=== PATIENT | male | born 1995 | race Caucasian/White ===

== ENCOUNTER 2017-02-04 19:34 | Emergency (ER) | payer OTHER ==
[~2017-02-04] VITALS: Ht 175.3 cm; Wt 95.2 kg
[2017-02-04] MEDS ORDERED: PROZAC20 MG PO (19:54)
[2017-02-04] MEDS ORDERED: VISTARIL50 MG PO (19:55)
[2017-02-04] MEDS ORDERED: GEODON60 MG PO (19:56)
[2017-02-04] MEDS ORDERED: VENTOLIN HFA18 GM INH (19:56)
[2017-02-04] MEDS ORDERED: GEODON40 MG PO (19:57)
[2017-06-13] MEDS ORDERED: AMITRIPTYLINE H50 MG PO (00:58)
[2017-06-13] MEDS ORDERED: UNISOM50 MG PO (01:01)
[2017-06-14] MEDS ORDERED: GEODON40 MG PO (10:43)
== END 2017-02-04 20:53 | disposition home or self-care (01) ==
LOC: ED 19:34
DX: S06.2X9A Diffuse traumatic brain injury with loss of consciousness of unspecified duration, initial encounter (principal); S05.12XA Contusion of eyeball and orbital tissues, left eye, initial encounter; S00.81XA Abrasion of other part of head, initial encounter; F20.9 Schizophrenia, unspecified; J45.909 Unspecified asthma, uncomplicated; Z91.010 Allergy to peanuts; Z88.8 Allergy status to other drugs, medicaments and biological substances; Z79.899 Other long term (current) drug therapy; W22.01XA Walked into wall, initial encounter
CPT/HCPCS: 70450; 99284

== ENCOUNTER 2017-02-10 16:24 | Day surgery (SDC) | payer OTHER ==
[~2017-02-10] VITALS: Ht 175.3 cm; Wt 95.2 kg
[~2017-02-10 16:24] MED LIST: GEODON40 MG PO; GEODON60 MG PO; PROZAC20 MG PO; VENTOLIN HFA18 GM INH; VISTARIL50 MG PO
--- NOTE | 2017-02-10 20:10 | NUR ---
02/10/172009 Zoie German PT O2 SAT 100%, O2 REMOVED.
--- NOTE | 2017-02-10 20:40 | NUR ---
RECEIVED REPORT FROM [facility] PACU. PT ARRIVED TO FLOOR AT THIS TIME.
--- NOTE | 2017-02-10 21:55 | NUR ---
PT GIVEN JOSE PUDDING AND A SOFT DRINK PER CHOICE. HANDS AND FACE WITH BLUE INK.
--- NOTE | 2017-02-10 22:00 | NUR ---
ATE 100 PERCENT PUDDING. [facility] NURSE LANI CALLED, GAVE REPORT VIA THE INSTRUCTIONS PROVIDED. PT IV DC'D INTACT.
--- NOTE | 2017-02-10 22:10 | NUR ---
PT ESCORTED OUTSIDE IN WHEELCHAIR, ACCOMPAINED BY THIS RN WELL 2 [facility] GUARDS. PT WAS READ THE INSTRUCTIONS PROVIDED, [facility] GUARD GIVEN ENVELOPE WITH INSTRUCTIONS ENCLOSED. PT DID NOT HAVE COMPLAINTS OF NAUSEA, BUT DID SAY THE FOOD DIDN'T HELP HIS STOMACH.
--- NOTE | 2017-02-12 12:48 | OR ---
[facility] [address], [place] [address] Signed DATE OF PROCEDURE: 02/10/17 PREOPERATIVE DIAGNOSIS: Gastric foreign bodies (comb and pin). POSTOPERATIVE DIAGNOSIS: Gastric foreign bodies (comb and pin). PROCEDURES: Esophagogastroduodenoscopy with foreign body removal. ESTIMATED BLOOD LOSS: None. INDICATIONS Donavon is a 21 -year-old schizophrenic gentleman with self-abusive behavior from our [facility]. He has been in segregation. He decided to take the teeth off a plastic comb and swallow them. They are also allowed the inner portion of a ballpoint pen in order to write. He bit the end of that often, bit another piece of it often, swallowed that as well. He was therefore brought to our local emergency room for evaluation. Of course, x-ray showed a metallic foreign body in the fundus of the stomach. I was asked to see him in the emergency room as a general surgeon relief salesperson. I met with Donavon and I explained to him it probably would be worthwhile to go ahead and take him down to endoscopy suite to see if we could remove most of those foreign bodies. However there is a high likelihood he will pass those foreign bodies as well. I explained to him upper endoscopy along with the risks and benefits. He also understands the need for an anesthesia provider. He had expressed understanding and wished to proceed. PROCEDURE NOTE Donavon was taken in to our endoscopy suite and placed in a supine position under general endotracheal tube anesthesia. The adult gastroscope was introduced and passed out into the stomach under direct visualization of camera. He still h ad some food in the stomach including peas and fluid and so forth. Much of that I was able to suction out, but not all of it. I could see small pieces of comb in the antrum with the food and it passed out in the duodenum and off it went. We retroflexed the scope and he had similar findings in the fundus. We used our biopsy forceps to remove multiple pieces of the comb and 2 pieces of the pin. There were still 2 tiny pieces in there and they never could get a hold of and remove. We then withdrew the scope a n d we saw no evidence of any obvious trauma to his esophagus or posterior oropharynx. After this, the gas was suctioned out and the gastroscope removed. Donavon was awakened from his anesthesia, extubated in the OR, taken to recovery room in stable condition. Electronically Signed By: RJ OWENS MD 02/12/17 1248 PATIENT NAME: DONAVON CALLE OPERATIVE REPORT DATE OF : [birth year] PHYSICIAN: RJ OWENS MD REPORT #: [id number] REPORT IS CONFIDENTIAL AND NOT TO BE RELEASED WITHOUT AUTHORIZATION [facility] [address] [place] [id number] Signed Rj Owens MD AB/Modl /[id number] cc: Bola Henley MD Electronically Signed By: RJ OWENS MD 02/12/17 1248 PATIENT NAME: DONAVON CALLE OPERATIVE REPORT DATE OF : 93 PHYSICIAN: RJ OWENS MD REPORT #: [id number] REPORT IS CONFIDENTIAL AND NOT TO BE RELEASED WITHOUT AUTHORIZATION
--- NOTE | 2017-02-12 12:48 | CONS ---
[facility] [address], [place] [address] Signed DATE OF CONSULTATION: 02/10/17 REFERRING PHYSICIAN: Dr. Jere Camacho. CHIEF COMPLAINT: Gastric foreign body. HISTORY OF PRESENT ILLNESS Donavon is a 21-year-old gentleman from our [facility]. He is known to have schizophrenia. He decided to chew off the end of a pin today and apparently broke off pieces of its plastic comb and was swallowing that as well. So he was, therefore, brought to the emergency room for evaluation. On the x-rays, it looks like he has part of a pin in the fundus of the stomach. Of course, the comb would be plastic and that would be difficult to see on a regular x-ray. I was asked to see him as a general surgeon on-call. PAST MEDICAL HISTORY: Schizophrenia, asthma, and self-abusive behavior. PAST SURGICAL HISTORY: Open appendectomy and circumcision. SOCIAL HISTORY He does not smoke or drink. He is from our [facility] [place]. Dr. Bola Henley is his primary care provider. His adoptive parents live in [place], near [place], [place]. FAMILY HISTORY Mom apparently h ad some type of bone marrow cancer, asthma, and diabetes. Dad had heart failure and renal failure. REVIEW OF SYSTEMS: I reviewed 10 systems of Donavon and nothing new to add. ALLERGIES: Peanuts, Metformin, Trazodone, and Nefazodone. MEDICATIONS: Fluoxetine, Vistaril, Geodon, and Albuterol. PHYSICAL EXAMINATION VITAL SIGNS: Blood pressure 146/85, heart rate 102, respiratory rate 16, temperature is 98.7, O2 is 97% on room air. He is 5 feet 9 inches and 93 kg. GENERAL: Donavon is a 21-year-old gentleman who is lying supine in his emergency room bed, two of the officers are with him. Of course, he is in handcuffs and ankle cuffs as well. He is alert and awake and interactive. He has blue ink around his mouth and his lips. LUNGS: Clear to auscultation bilaterally. HEART: Regular rate and rhythm. ABDOMEN: Soft, flat, and nontender. Electronically Signed By: RJ GOTTI MD 02/12/17 1248 PATIENT NAME: DONAVON CALLE CONSULTATION DATE OF : [birth year] PHYSICIAN: RJ GOTTI MD REPORT #: [id number] REPORT IS CONFIDENTIAL AND NOT TO BE RELEASED WITHOUT AUTHORIZATION [facility] [address], [place] [address] Signed LABORATORY DATA His white blood cell count is 10.5, hemoglobin 16, neutrophils 71. Electrolytes unremarkable. His calcium is slightly up at 10.9. RADIOGRAPHIC STUDIES Abdominal and chest x-rays are reviewed along with the report. There is a metallic foreign body in what appears to be the fundus of the stomach in the left upper quadrant of the abdomen. ASSESSMENT AND PLAN Donavon is a 21-year-old gentleman who presents with gastric foreign bodies. I explained to Donavon it is probably best we go ahead and take him down under anesthesia for upper endoscopy and we can remove as many foreign bodies as possible. Often smaller foreign bodies can pass, but we will do our best to get all the foreign bodies out. Of course, there is risk to the procedure including but not limited to gas, bloating, crampy abdominal pain, bleeding, perforation requiring surgery, and missed diagnosis. He has expressed understanding and would like to proceed. MD PEE Kirby/Modl /[id number] cc: Bola Henley MD Electronically Signed By: RJ GOTTI MD 02/12/17 1248 PATIENT NAME: DONAVON CALLE CONSULTATION DATE OF : 93 PHYSICIAN: RJ GOTTI MD REPORT #: [id number] REPORT IS CONFIDENTIAL AND NOT TO BE RELEASED WITHOUT AUTHORIZATION
[2017-06-13] MEDS ORDERED: AMITRIPTYLINE H50 MG PO (00:58)
[2017-06-13] MEDS ORDERED: UNISOM50 MG PO (01:01)
[2017-06-14] MEDS ORDERED: GEODON40 MG PO (10:43)
== END 2017-02-10 22:10 | disposition home or self-care (01) ==
LOC: ED 16:24 → MS 16:26 → DS 16:26
PROVIDERS: Colon & Rectal Surgery
PROC: 0DC68ZZ Extirpation of Matter from Stomach, Via Natural or Artificial Opening Endoscopic (ICD-10-PCS; principal; 2017-02-10 19:09)
DX: T18.2XXA Foreign body in stomach, initial encounter (principal); F20.9 Schizophrenia, unspecified; J45.909 Unspecified asthma, uncomplicated; Z90.49 Acquired absence of other specified parts of digestive tract
CPT/HCPCS: 00740; 71010; 74000; 80048; 85025; 94640; 99285; J0330; J1100; J2704

== ENCOUNTER 2017-02-12 15:24 | Emergency (ER) | payer OTHER ==
[~2017-02-12] VITALS: Ht 175.3 cm; Wt 95.2 kg
[2017-02-12] MEDS ORDERED: HALDOL5 MG/1 ML PO (15:37)
[2017-06-13] MEDS ORDERED: AMITRIPTYLINE H50 MG PO (00:58)
[2017-06-13] MEDS ORDERED: UNISOM50 MG PO (01:01)
[2017-06-14] MEDS ORDERED: GEODON40 MG PO (10:43)
== END 2017-02-12 19:32 | disposition home or self-care (01) ==
LOC: ED 15:24
DX: T50.992A Poisoning by other drugs, medicaments and biological substances, intentional self-harm, initial encounter (principal); R11.2 Nausea with vomiting, unspecified; F20.9 Schizophrenia, unspecified; J45.909 Unspecified asthma, uncomplicated; Z91.010 Allergy to peanuts; Z88.8 Allergy status to other drugs, medicaments and biological substances; Z79.899 Other long term (current) drug therapy
CPT/HCPCS: 74000; 80053; 80176; 81001; 85025; 96374; 99283; G0480; J2060

== ENCOUNTER 2017-05-09 18:37 | Emergency (ER) | payer OTHER ==
[~2017-05-09] VITALS: Ht 175.3 cm; Wt 95.2 kg
[~2017-05-09 18:37] MED LIST changes: +HALDOL5 MG/1 ML PO
[2017-05-09] MEDS ORDERED: AMITRIPTYLINE H50 MG PO (18:52)
[2017-05-09] MEDS ORDERED: AMOXICILLIN500 MG PO (21:21)
[2017-06-13] MEDS ORDERED: AMITRIPTYLINE H50 MG PO (00:58)
[2017-06-13] MEDS ORDERED: UNISOM50 MG PO (01:01)
[2017-06-14] MEDS ORDERED: GEODON40 MG PO (10:43)
== END 2017-05-09 21:27 | disposition home or self-care (01) ==
LOC: ED 18:37
DX: T17.228A Food in pharynx causing other injury, initial encounter (principal); J45.909 Unspecified asthma, uncomplicated; F20.9 Schizophrenia, unspecified; Z90.49 Acquired absence of other specified parts of digestive tract; Z91.010 Allergy to peanuts; Z88.8 Allergy status to other drugs, medicaments and biological substances; Z79.899 Other long term (current) drug therapy
CPT/HCPCS: 70360; 71010; 99283

== ENCOUNTER 2017-05-23 09:34 | Emergency (ER) | payer OTHER ==
[~2017-05-23] VITALS: Ht 175.3 cm; Wt 97.5 kg
[~2017-05-23 09:34] MED LIST changes: +AMITRIPTYLINE H50 MG PO; +AMOXICILLIN500 MG PO
[2017-05-23] MEDS ORDERED: CLEOCIN HCL300 MG PO (09:45)
[2017-05-23] MEDS ORDERED: ULTRAM50 MG PO (09:46)
[2017-06-13] MEDS ORDERED: AMITRIPTYLINE H50 MG PO (00:58)
[2017-06-13] MEDS ORDERED: UNISOM50 MG PO (01:01)
[2017-06-14] MEDS ORDERED: GEODON40 MG PO (10:43)
== END 2017-05-23 12:43 | disposition home or self-care (01) ==
LOC: ED 09:34
PROC: 0HCEXZZ Extirpation of Matter from Left Lower Arm Skin, External Approach (ICD-10-PCS; principal; 2017-05-23)
DX: S60.852A Superficial foreign body of left wrist, initial encounter (principal); F20.9 Schizophrenia, unspecified; J45.909 Unspecified asthma, uncomplicated; Z90.49 Acquired absence of other specified parts of digestive tract; Z91.010 Allergy to peanuts; Z88.8 Allergy status to other drugs, medicaments and biological substances; Z79.899 Other long term (current) drug therapy; Z79.2 Long term (current) use of antibiotics; W45.8XXA Other foreign body or object entering through skin, initial encounter
CPT/HCPCS: 10120; 73110; 76000; 99283

== ENCOUNTER 2017-06-13 17:30 | Inpatient (IN) | payer OTHER ==
[~2017-06-13] VITALS: Ht 175.3 cm; Wt 104.1 kg
[~2017-06-13 17:30] MED LIST changes: +CLEOCIN HCL300 MG PO; +ULTRAM50 MG PO; +UNISOM50 MG PO
[2017-06-13] MEDS ORDERED: HYDROXYZINE HCL50 MG PO (18:12)
--- NOTE | 2017-06-17 05:42 | CONS ---
[facility] [address] [place], [place] [address] Signed DATE OF CONSULTATION: 06/13/2017 CHIEF COMPLAINT: Swallowed foreign bodies. HISTORY OF PRESENT ILLNESS: Donavon is a 21-year-old gentleman with schizophrenia from our local [facility]. The last two days, it sounds like he swallowed two rocks, part of a pin, part of a toothbrush, and then some Coban and gauze as well. He came to the emergency room earlier and was sent home. He is back because he was having subxiphoid abdominal pain. He did receive a CT scan of the abdomen and pelvis with oral contrast; sure enough he has two rocks down in the small bowel along with the pin, with some pneumatosis around the pin, and then probably part of the toothbrush is proximal to that and then it looks like the gauze was stuck in the stomach and part of the pylorus. I was asked to see him here in the emergency room. PAST MEDICAL HISTORY: Schizophrenia, asthma, self harm behavior. PAST SURGICAL HISTORY: Appendectomy; EGD, with foreign body removal. SOCIAL HISTORY: He does not smoke or drink. [facility] is [facility] Dr. Jc Henley is his primary care provider. FAMILY HISTORY: Not reviewed. REVIEW OF SYSTEMS: A 10-systems reviewed and really nothing new since I saw Donavon last. ALLERGIES: Peanut, metformin, trazodone, and nefazodone. MEDICATIONS,: Benadryl, hydroxyzine, Geodon, amitriptyline, fluoxetine, and albuterol. PHYSICAL EXAMINATION: VITAL SIGNS: Blood pressure is 120/64, heart rate is 114, respiratory rate 18, temperature is 99.1. He is 95% on room air. He is 5 feet 9 inches, 97 kg. GENERAL: Donavon is a 21-year-old gentleman who is sitting semi-recumbent supine in his ER bed. He just had his NG tube placed and to removal of the oral contrast from his Electronically Signed By: RJ GOTTI MD 06/17/17 0542 PATIENT NAME: DONAVON CALLE CONSULTATION DATE OF : 93 PHYSICIAN: RJ GOTTI MD REPORT #: [id number] REPORT IS CONFIDENTIAL AND NOT TO BE RELEASED WITHOUT AUTHORIZATION [facility] [address] [place], [place] [address] Signed stomach. He is alert, awake, and interactive. LUNGS: Clear to auscultation. HEART: Tachycardic. ABDOMEN: Mildly protuberant, but he does not seem to have tenderness to palpation. Certainly no peritonitis. LABORATORY DATA: His white blood cell count 17.9, neutrophils 83. His potassium is 2.4, BUN 17, creatinine 0.9. The UA, specific gravity is elevated at 1.033. His albumin is 4.6. RADIOGRAPHIC STUDIES: CT scan of the abdomen and pelvis is reviewed along with the report from the radiologist and sure enough we can see some gauze in the stomach, probably some in the pylorus. There were two rocks out in the small bowel. I can see a metallic object, probably the pin, with some pneumatosis around it and proximal to that it looks like there was a clear plastic foreign body in his small bowel. ASSESSMENT AND PLAN: Donavon is a 21-year-old gentleman who presents as above. At this point, I think we are going to take him down the endoscopy suite and see if we can get the gauze and Coban out of his stomach for tonight. He will be admitted and we are going to correct his potassium and we will repeat his labs in the morning. There was some concern obviously with the pneumatosis around that pin that he may need surgery to have that removed. I have explained this to Donavon. He has expressed understanding and agrees with the above plan. He has been through upper endoscopy before and he understands that quite well. Rj Gotti MD ALB/MODL /[id number] cc: MD Bola Harris MD Electronically Signed By: RJ GOTTI MD 06/17/17 0542 PATIENT NAME: DONAVON CALLE CONSULTATION DATE OF : 93 PHYSICIAN: RJ GOTTI MD REPORT #: [id number] REPORT IS CONFIDENTIAL AND NOT TO BE RELEASED WITHOUT AUTHORIZATION
--- NOTE | 2017-06-18 06:57 | OR ---
[facility] [address] [place], [place] [address] Signed DATE OF OPERATION: 06/17/17 SURGEON: Rj Gotti MD PREOPERATIVE DIAGNOSIS: Gastric and small-bowel foreign bodies. POSTOPERATIVE DIAGNOSIS: Gastric and small-bowel foreign bodies. PROCEDURE: Esophagogastroduodenoscopy with foreign body removal x6. FINDINGS: Coban x2, pen x2, foam gauze x2. ESTIMATED BLOOD LOSS: None. INDICATIONS: Donavon is a 21-year-old gentleman with schizophrenia from our [facility]. We have had him before, where he had swallowed various foreign bodies. Apparently, he has been in segregation and decided he wanted to swallow a couple of rocks, 2 pieces of a pen, part of a toothbrush, and some Coban and gauze. He came to the emergency room once, I sent him back home, and he was having subxiphoid abdominal pain, so they brought him back to the emergency room. He was a little tachycardic with a T-max of 99.4. His white count was up at 17.9. Potassium was down to 2.[address] scan showed what looks like the gauze in the stomach near the pylorus, two rocks in the small bowel and two pieces of pen, and/or one piece of pen with part of a toothbrush and it looks like there may be some pneumatosis around the pen out in the mid small bowel. However, he points to pain right below underneath the xiphoid process. I was asked to come see him here in the emergency room. I met with Donavon and explained to him that we needed to take him down to our endoscopy suite and remove as many foreign bodies as we could with our endoscope. Given the fact that and given his above findings, we are going to keep him overnight for hydration, correct his hypokalemia, and repeat his blood work in the morning and see whether or not the pen has perforated his bowel. At this point, we did not see any free air. There was just some pneumatosis underneath the mucosa. He understands upper endoscopy having been through it previously. He understands there is risk including but not limited to gas bloating, crampy abdominal pain, bleeding, perforation requiring surgery, and missed diagnosis. He had expressed understanding wished to proceed. Electronically Signed By: RJ GOTTI MD 06/17/17 0542 Electronically Signed By: RJ GOTTI MD 06/18/17 1432 PATIENT NAME: DONAVON CALLE OPERATIVE REPORT DATE OF : 93 PHYSICIAN: RJ GOTTI MD REPORT #: [id number] REPORT IS CONFIDENTIAL AND NOT TO BE RELEASED WITHOUT AUTHORIZATION [facility] [address] [place], [place] [address] Signed PROCEDURE NOTE: Donavon was taken into our endoscopy suite and placed in the supine semi-recumbent position. We had placed an NG tube in the emergency room and suctioned out his oral contrast. He was placed under general endotracheal tube anesthesia. The adult gastroscope was then introduced and advanced down the esophagus without difficulty. We found the two pieces of Coban and the two pieces of foam gauze up near the GE junction. Those four pieces were removed with the grasper. The scope had been reintroduced and we found that he had a piece of pen in the antrum of the stomach, so we grabbed that with our snare and removed it from the abdomen. After this, we went out into the duodenum and found a second piece of the pen containing the ink and we removed that with our snare as well. The scope was reintroduced all the way out into the duodenum as far as the camera would go and we were somewhere out in the third portion of the duodenum. No additional foreign bodies were noted. There was some clear bile in the duodenum. The scope was then slowly withdrawn. Upon retroflexion of scope, his cardia looked fine. We did not see any obvious hiatal hernia. The scope was withdrawn up through the area of the GE junction, which was compliant without stricture. He had a little irritation in the esophagus mainly from the NG tube. After this, the gas was suctioned out and the gastroscope removed. Donavon tolerated his procedure quite well. RECOMMENDATIONS: Donavon is going to be kept overnight here at the hospital. We are going to hydrate him, repeat his labs in the morning, since we have some concern about pneumatosis around that piece of pen out in the mid small bowel. However, he does not seem to have any pain out in his mid abdomen. MD DONNA Harris/STEFANIEL /[id number] cc: Bola Henley MD Electronically Signed By: RJ GOTTI MD 06/17/17 0542 Electronically Signed By: RJ GOTTI MD 06/18/17 1432 PATIENT NAME: DONAVON CALLE OPERATIVE REPORT DATE OF : [birth year] PHYSICIAN: RJ GOTTI MD REPORT #: [id number] REPORT IS CONFIDENTIAL AND NOT TO BE RELEASED WITHOUT AUTHORIZATION
== END 2017-06-18 15:55 | disposition home or self-care (01) | DRG 394 ==
LOC: ED 17:30 → MS 17:32
PROVIDERS: ADMIT Colon & Rectal Surgery
PROC: 0DC68ZZ Extirpation of Matter from Stomach, Via Natural or Artificial Opening Endoscopic (ICD-10-PCS; principal; 2017-06-17)
PROC: 0DC88ZZ Extirpation of Matter from Small Intestine, Via Natural or Artificial Opening Endoscopic (ICD-10-PCS; principal; 2017-06-17)
DX: T18.2XXA Foreign body in stomach, initial encounter (principal); F23 Brief psychotic disorder; X58.XXXA Exposure to other specified factors, initial encounter; T18.3XXA Foreign body in small intestine, initial encounter
CPT/HCPCS: 36415; 51701; 51702; 51798; 71045; 74020; 74177; 80048; 80053; 81001; 83735; 84075; 84100; 85025; 96361; 96374; 96375; 96376; 99156; 99157; 99284; G0378; J1170; J2060; J2405; J3480; J7030; J7120; Q0177; Q9967

== ENCOUNTER 2017-06-18 20:10 | Inpatient (IN) | payer OTHER ==
[~2017-06-18] VITALS: Ht 175.3 cm; Wt 99.4 kg
[~2017-06-18 20:10] MED LIST changes: +HYDROXYZINE HCL50 MG PO
--- NOTE | 2017-06-18 22:38 | NUR ---
RECEIVED REPORT FROM RADHA CARMONA FROM ED.
--- NOTE | 2017-06-18 22:58 | NUR ---
HELPED OTHER RN'S GET PT MOVED INTO BED FROM [facility]. GOT VITALS AND CHARTED IT. LEFT PT WITH RN AND TWO GUARDS IN THE ROOM. PT NEEDS NOTHING ELSE AT THIS TIME. BEDSIDE TABLE AND CALL LIGHT WITHIN REACH.
--- NOTE | 2017-06-18 23:06 | NUR ---
PT ARRIVED BY STRETCHER FROM [facility]. PT WAS DISCHARGED TODAY BACK TO [facility]. PT SWALLOWED OBJECTS, DR. GOTTI REMOVED MOST BUT REMAINING "PART OF A PEN". PT IS SHACKLED, HAS 2 GUARDS PRESENT AT BEDSIDE. PT IS NOT ALLOWED TO HAVE MOVABLE OBJECTS WITHIN HIS REACH DUE TO "PICA" LIKE BEHAVIOR, SELF HARM. CALL ALARCON WITHIN HIS REACH. IV BOLUS CONTINING AT THIS TIME. DENIES NAUSEA, WANTING TO DRINK BUT IS AWARE HE IS NPO.
--- NOTE | 2017-06-18 23:49 | NUR ---
PATIENT RESTING COMFORTABLY IN BED, BREATHING IS EVEN AND UNLABORED. REPORTS 5/10 PAIN IN ABD AND STATES "I AM ACTUALLY PRETTY COMFORTABLE RIGHT NOW." DENIES NAUSEA AT THIS TIME. NO NEEDS. ASSESSMENT DONE. CALL LIGHT WITHIN REACH, RESTRAINTS IN PLACE, GUARDS AT BEDSIDE.
--- NOTE | 2017-06-19 00:30 | NUR ---
PATIENT REPORTS 7/10 PAIN IN ABD, PRN DILAUDID GIVEN PER EMAR. DENIES FURTHER NEEDS AT THIS TIME. CALL LIGHT WITHIN REACH, GUARDS AT BEDSIDE.
--- NOTE | 2017-06-19 02:46 | NUR ---
PATIENT REPORTS 01/09 IN ABD, PRN DILAUDID GIVEN BY RADHA ACKERMAN.
--- NOTE | 2017-06-19 02:46 | NUR ---
VITALS DONE AND CHARTED. PT IS NPO AND HAS NOT URINATED SINCE HE HAS BEEN ON MEDS SURG. RN LIVIA IS AWARE OF THIS. BEDSIDE TABLE AND CALL LIGHT WITHIN REACH. TWO GUARDS ARE IN THE ROOM WITH HIM. PT NEEDS NOTHING ELSE AT THIS TIME.
--- NOTE | 2017-06-19 03:36 | NUR ---
PATIENT RESTING COMFORTABLY IN BED, BREATHING IS EVEN AND UNLABORED. REPORTS 5/10 PAIN IN ABD. DENIES NEEDS AT THIS TIME. CALL LIGHT WITHIN REACH, GUARDS AT BEDSIDE.
--- NOTE | 2017-06-19 04:30 | NUR ---
PATIENT'S NIGHT WAS UNEVENTFUL. HE HAS BEEN RESTING IN BED SINCE ADMISSION. PAIN HAS BEEN WELL CONTROLLED WITH PRN IV DILAUDID, NO COMPLAINTS OF NAUSEA SINCE ARRIVAL TO MED-SURG. PATIENT HAS IV FLUIDS, CURRENTLY NPO. WILL HAVE ABD X-RAY THIS MORNING. NO ACUTE CHANGES FROM ARRIVAL.
--- NOTE | 2017-06-19 04:38 | NUR ---
PATIENT RESTING COMFORTABLY IN BED, BREATHING IS EVEN AND UNLABORED. FLACC SCORE OF 0. CALL LIGHT WITHIN REACH, GUARDS AT BEDSIDE.
--- NOTE | 2017-06-19 05:27 | NUR ---
PATIENT RESTING IN BED COMFORTABLY, BREATHING IS EVEN AND UNLABORED. REPORTS 7/10 PAIN IN ABD AND NAUSEA. PRN PAIN MEDICATION AND ANTIEMETIC GIVEN. DENIES FURTHER NEEDS. VITALS/I&O DONE. CALL LIGHT WITHIN REACH, GUARDS AT BEDSIDE.
--- NOTE | 2017-06-19 06:14 | NUR ---
PATIENT RESTING COMFORTABLY IN BED, BREATHING IS EVEN AND UNLABORED. DENIES NEEDS AT THIS TIME. REPORTS 5/10 ABD PAIN, NO NAUSEA AT THIS TIME. CALL LIGHT WITHIN REACH, GUARDS AT BEDSIDE.
--- NOTE | 2017-06-19 08:00 | NUR ---
PATIENT REQUESTING PAIN MEDICATION REPORTS 01/09 AFTER PUTTING HOSPITAL GOWN ON. PATIENT URINATING WELL, 300 ML OF CLEAR YELLOW URINE. PATIENT BACK RESTING IN BED. GUARDS AT BEDSIDE.
--- NOTE | 2017-06-19 10:27 | NUR ---
MED REC COMPLETE BASED ON PREVIOUS STARY 06/18/17.
--- NOTE | 2017-06-19 10:31 | NUR ---
PATIENT REQUESTING MEDS FOR NAUSEA. DISCUSSED WITH PATIENT ADMINISTER MORNING MEDICAITONS WITH SIPS OF WATER, AND COULD HAVE MORE PAIN MEDICATION. PATIENT THEN STATED " I AM NOT REALLY NAUTIOUS, I JUST WANT TO SLEEP". DISCUSSED WITH PLAN OF CARE FOR DAY. POSSIBLE SURGERY, HOWEVER PATIENT NEEDS TO BE UP AMBULATING IN HALLS, AND DISCUSSED VS Q4HRS. VS STABLE AND I&0S DONE.
--- NOTE | 2017-06-19 17:46 | NUR ---
PT SHOWERED WITH SUPERVISION OF GUARD. LINENS WERE CHANGED. PT BACK IN BED AND ASKED ABOUT HIS PAIN AND NAUSEA MEDS. WILL NOTIFY NURSE
--- NOTE | 2017-06-19 18:42 | NUR ---
PATIENT UP AMBULATED IN HALLS, TOLERATED WELL. PLAN TO DO SURGERY TOMORROW, CLEAR LIQUIDS TILL MIDNIGHT. PAIN WELL CONTROLLED WITH DILAUDID.
--- NOTE | 2017-06-19 20:00 | NUR ---
RECEIVED REPORT AT AROUND 1900. I FOUND PT IN BED WITH 2 GUARDS AT BESIDE. PT STATED THAT PAIN WAS 8/10 AND NAUSEA. PT IS TOLERATING CLEAR LIQUIDS WELL.
--- NOTE | 2017-06-19 20:25 | NUR ---
VITALS AND I&OS DONE AND CHARTED. BEDSIDE TABLE AND CALL LIGHT WITHIN REACH.
--- NOTE | 2017-06-19 22:00 | NUR ---
V/S ARE WDL, ALL LOBES ARE CLEAR. ALL ABD QUADRANTS HAVE NORMAL BOWEL SOUNDS PRESENT. PT DENIES PASSING GAS. PT IS TOLERATING CLEAR LIQUIDS WELL. NAUSEA AND PAIN ARE CONTROLLED WITH PRN MEDS. NO NEW ISSUES NOTED AT THIS TIME.
--- NOTE | 2017-06-19 22:16 | NUR ---
PT ADMITTED TO ROOM 119 VIA STRETCHER FROM ER. DX HYPOXEMIA, ON A2 2L/nc, CONT PULSE OX INPLACE SATS AT 93%. PT HAD A FEVER OF 103 ON ADMIT. PT WAS NEGATIVE FOR FLU . WILL BE PLACED ON DROPLET ISOLATION A NURSING MEASURE, NO COUGH OR C/O PAIN AT THIS TIME. PT ORIENTED TO ROOM AND HOSP PROCEDURES, ISOLATION STATUS EXPLAINED, STATED UNDERSTANDING
--- NOTE | 2017-06-20 00:30 | NUR ---
PAIN IS 7/10. PT REICEVED 1MG OF DILAUDED IV. PT IS GOING BACK TO SLEEP.
--- NOTE | 2017-06-20 01:41 | NUR ---
PER PT REQUEST I WENT IN AND EMPTIED HIS URINAL. PT REQUESTED MORE PAIN MEDICATION. I INFORMED HIS NURSE.
--- NOTE | 2017-06-20 02:30 | NUR ---
PT IS SLEEPING AT THIS TIME.
--- NOTE | 2017-06-20 04:28 | NUR ---
PT IS SLEEPING AT THIS TIME. PT RECEIVED 1MG OF IV DILAUDED AT 0400.
--- NOTE | 2017-06-20 05:42 | NUR ---
VITALS AND I&OS DONE AND CHARTED. EMPTIED ALL GARBAGES. PT NEEDS NOTHING ELSE AT THIS TIME. BEDSIDE TABLE AND CALL LIGHT WITHIN REACH.
--- NOTE | 2017-06-20 05:50 | NUR ---
V/S HAVE BEEN WDL SO FAR. PAIN HAS BEEN WELL CONTROLLED WITH PRN IV PAIN MED. ALL ABD QUADRANTS HAVE ACTIVE BOWEL TONES, PT HOWEVER DENIES PASSING ANY GAS. PT HAS SHOWN MANIPULATIVE BEHAVIOR IN REGARDS TO HIS PRN MEDS. ALL LUNGS ARE CLEAR AND NO NEW ISSUES HAVE BEEN NOTED SO FAR. PT HAS IS NPO. WRONG IV FLUIDS WERE RUNNING AT START OF SHIFT. ERROR WAS CORRECTED.
--- NOTE | 2017-06-20 08:40 | NUR ---
VERIFIED WITH DR. SHEN JONES TO ADMINISTER PROZAC WITH SIP OF WATER.
--- NOTE | 2017-06-20 10:29 | NUR ---
PATIENT TO SURGERY, VERBAL REPORT TO WINSOME GARCIA. PATIENT UP TO BATHROOM. LR WITH STRAIGHT TUBING CONNECTED. VS STABLE.
--- NOTE | 2017-06-20 11:42 | NUR ---
PATIENT GOT A SURGICAL WIPE DOWN AROUND 0900 THIS MORNING AND LINEN CHANGED.
--- NOTE | 2017-06-20 13:40 | NUR ---
06/20/17 1340 Zoie German 1329 RESP EVEN AND UNLABORED. PT MOVING HEAD BACK AND FORTH. CNRA GAVE MEDICAITON. 1335 PT ASLEEP.
--- NOTE | 2017-06-20 14:50 | NUR ---
PATIENT BACK TO ROOM 1425, REPORT RECIEVED. PATIENT APPEARS DROWSY, EYES CLOSED 02 SATURAITON 95% 1 L NC. PATIENT MUMBLING " THIRSTY". VERBALIZED TO PATIENT THAT HE MUST BE MORE AWAKE BEFORE WATER CAN BE PROVIDED. PATIENT THEN THRASHING HEAD BACK AND FORTH AND STICKING TONGUE OUT AND IN HIS MOUTH REPEATEDLY, " MY MOUTH SO DRY". PATIENT THEN SLEEPING. PROVIDED PATIENT WITH WARM BLANKET. PATIENT NOW ASKING " HOW MANY PEOPLE DID I HURT" REASSURED PATIENT NO ONE WAS HURT. VS STABLE.
--- NOTE | 2017-06-20 15:27 | NUR ---
PATIENT AMBULATED FULL LAP IN HALLS, APPEARS TO BE CALM AND COMFORTABLE. HEMATOMA TO RIGHT ELBOW APPEARS IMPROVED. AND LEFT HIP PAIN IMPROVED WELL. PATIENT SATURATION DE SAT TO 85% ON 2L, HOWEVER SATURATION IMPROVED WHEN SHE STOPPED WITH AND TOOK SOME DEEP BREATHS. RATED PAIN 5/10 AFTER AMBULATION, STATED " THAT WIPED ME OUT". PATIENT VERY PLEASED WITH SELF, AND NOW RESTING BACK IN BED.
--- NOTE | 2017-06-20 19:54 | NUR ---
PATIENT IN BED. EMPTIED URINAL (1000ML URINE). WHITEBOARD UPDATED, ROOM TIDIED.
--- NOTE | 2017-06-20 20:00 | NUR ---
RECEIVED REPORT AT 1900. FOUND PT IN BED NEEDING NAUSEA MEDS. 8MG OF ZOFRAN WAS GIVEN. PT STATED NO OTHER NEEDS AT THAT TIME. PT IS ALERT AND RESTING IN BED.
--- NOTE | 2017-06-20 22:00 | NUR ---
V/S WERE WDL, HOWEVER, HIS HR AND BP WERE A LITTLE HIGH FOR A PERSON HIS AGE. PAIN MAY PLAY A ROLE IN THIS FINDING THOUGH. ALL LOBES ARE CLEAR, ABD SOUNDS ARE ABSENT IN ALL QUADRANTS. PT HAS NOT BEEN PASSING SO FAR. PT IS VOIDING WELL. WILL CONTINUE TO MONITOR.
--- NOTE | 2017-06-20 22:25 | NUR ---
medicated with phenergan 12.5mg c/o n/v, no dry heaving ort emesis noted.
--- NOTE | 2017-06-21 | NUR ---
PT IS SLEEPING AT THIS TIME.
--- NOTE | 2017-06-21 02:02 | NUR ---
PT KEEPS ASKING FOR PAIN MEDICATION BUT I HAD TO HOLD IT BECAUSE HIS O2 SATS HAVE STARTED TO DROP TO ABOUT 90%. PT NOW IS ON BROOMCORN THRESHER AND 2L O2 NC. I TOLD HIM THAT I WOULD HAVE TO HOLD OF ON HIS PAIN MEDS FOR NOW. PT APPEARS TO BE RESTING AT THIS TIME.
--- NOTE | 2017-06-21 02:57 | NUR ---
RN IN ROOM
--- NOTE | 2017-06-21 03:25 | NUR ---
V/S ARE WDL, PT IS NOT PASSING GAS, ABD BOWEL TONES ARE ABSENT, ABD SEEMS A LITTLE MORE DISTENDED. PT STATED THAT HE IS BELCHING SOME. WILL CONTINUE TO MONITOR. DRESSING IS STILL C/D/I. ALL LOBES ARE CLEAR.
--- NOTE | 2017-06-21 04:56 | NUR ---
AT START OF SHIFT PT WAS VERY PAINFUL AND NAUSEADED. ORAL PRN PAIN MEDS WERE GIVEN AT FIRST BUT DID NOT RELIEF HIS PAIN AT ALL. ZOFRAN 8MG AND PHENERGAN 12.5MG WAS GIVEN IN ORDER TO RELIEF HIS NAUSEA. WITH BOTH ASSESSMENTS ABD SOUNDS IN ALL QAUDRANTS WERE ABSENT. PT HAS NOT PASSED ANY GAS SO FAR. PT STATED WITH SECOND ASSESSMENT THAT HE WAS BELCHING SOME. HIS ABDOMEN ALSO LOOKED MILDLY DISTENDED. DRESSING ON ABD IS C/D/I, ALL LOBES ARE CLEAR. PT IS NOT DOING MUCH DEEP BREATHING. URINE OUTPUT IS ADEQUATE. PT IS ON AIR DEFENCE OFFICER DUE TO NARCOTIC USE.
--- NOTE | 2017-06-21 05:49 | NUR ---
MD GOTTI CALLED IN REGARDS TO ABSENT BOWEL TONES AND INCREASING ABD DISTENTION. ORDERS WERE GIVEN TO MAKE PT NPO AT THIS TIME AND TO CONTINUE TO MONITOR.
--- NOTE | 2017-06-21 08:45 | NUR ---
PT AWAKE IN BED, REQUESTING PAIN MEDICATION FOR 7/10 ABD PAIN. MEDICATED WITH IV DILAUDID. PT DENIES FLATUS, ACTIVE BT NOTED, NO DISTENTION NOTED. PT DENIES NAUSEA. ALERT AND ORIENTED. 4 POINT CORRECTIONAL SHACKLES IN PLACE, SO CORRECTIONAL OFFICERS AT BEDSIDE. IV INFUSING WNL. PT SATTING 95% ON RA. MIDLINE DRESSING CDI. CALL LIGHT WITHIN REACH.
--- NOTE | 2017-06-21 09:43 | OR ---
[facility] [address], [place] [address] Signed DATE OF OPERATION: 06/20/2017 SURGEON: Rj Gotti MD PREOPERATIVE DIAGNOSIS: GI foreign bodies. POSTOPERATIVE DIAGNOSIS: Cecal foreign bodies x3 (rocks x2, ink pen tip). PROCEDURE: Laparotomy with GI foreign body removal x3 with physician directed fluoroscopy. ESTIMATED BLOOD LOSS: None. 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 He was with us earlier in the week after ingesting multiple foreign bodies to include the tip of an ink pen, 2 small rocks, the distal handle of a plastic toothbrush, as well as the inner ink cartridge from the pen, the Coban around his wrist, along with some foam that had been underneath the Coban. He has already been to the endoscopy suite and had the Coban and the foam gauze removed along with the ink pen cartridge. However, the 2 rocks, the tip of the ink pen and the toothbrush handle were too far down the small bowel to reach with a gastroscope. We had kept him in the hospital a few days on liquid diet without any bowel movement. We finally gave him some laxatives and he had multiple bowel movements. It looks like he cleared the toothbrush handle and the 2 rocks, but the tip of the ink pen was in the right lower quadrant. We thought maybe it was at the ileocecal valve. We let him go back to the skilled nursing, our plan was to let him have some continued diet for a few days, repeat x-rays and if it did not pass to bring him back to remove that foreign body. However, when he got back to the skilled nursing, he had unexplainable nausea and vomiting and so he was brought back to the emergency room. The ER doctor called me and so I just admitted him directly back into the hospital. Overnight, he slept and had no further nausea or vomiting. In the morning, I had met with him and explained that we could see at least the tip of the ink pen in the right lower quadrant and our plans were to take him to the operating room to have that removed. We were not able to do it that day, so today we brought him down the operating room for his laparotomy. I explained this to Donavon in detail over several days actually. He understands the midline laparotomy will be a periumbilical incision. We are going to use our fluoroscopy unit to help us find the tip of the ink pen and we Electronically Signed By: RJ GOTTI MD 06/21/17 0943 PATIENT NAME: DONAVON CALLE OPERATIVE REPORT DATE OF : 89 PHYSICIAN: RJ GOTTI MD REPORT #: [id number] REPORT IS CONFIDENTIAL AND NOT TO BE RELEASED WITHOUT AUTHORIZATION [facility] [address], [place] [address] Signed will have to make a small hole in the intestine to remove that and then closed that in 2 layers. He understands the expected intraoperative and postoperative course. He knows there is risk including but not limited to bleeding, infection, scarring, change in contour of the skin, damage to bowel, leakage from the bowel or inability to retrieve all foreign bodies, and possible need for additional surgeries should a foreign body perforate his intestine. He had expressed understanding and wished to proceed. PROCEDURE NOTE: Donavon was taken into the operating room and placed in the supine position under general endotracheal tube anesthesia. He was given preoperative antibiotics along with subcutaneous heparin. SCDs were utilized. A Dewitt catheter was inserted with return of clear yellow urine. The cuffs around his feet and hands were then removed. We used our fluoroscopy unit and we could see the tip of the pen in the right lower quadrant. After this, bilateral DESTINY blocks were placed by our nurse dye house hand. He was then prepped and draped in the usual sterile fashion. A standard periumbilical incision was made just slightly wider than my hand. He has had a previous appendectomy. The base of the cecum was adherent to the pelvic sidewall. We freed up the omentum and some small bowel and we followed the terminal ileum right down the ileocecal valve. I palpated carefully through that area and could not feel any foreign bodies. We brought the fluoro machine over and we could not see any foreign body in the small bowel and therefore we thought it must be in the cecum itself. It took some additional time to carefully free up the cecum from the sidewall and once we had that elevated, I was able to palpate the 2 rocks. We placed a bowel clamp across the small portion of the cecum, opened up the cecum about 1 cm and brought the 2 rocks out of the cecum and passed them off the field. We recheck with our fluoroscopy unit and sure enough the tip of the pen appeared to be in the cecum. It took me just a few minutes in to find it by palpation. We brought it up and out through a 1 cm hole in the cecum. After this, the hole in the cecum was closed in 2 layers with Vicryl and silk sutures. We then washed our hands and washed out the right lower quadrant. The cecum and small bowel returned to their positions. We brought the fluoro machine back over and rechecked around the right lower quadrant of the abdomen. No other foreign bodies were noted. After this, the midline fascia was closed with interrupted multiple [id number] #1 PDS sutures. The wound was irrigated and suctioned out until clear. Multiple 3-0 subcuticular Monocryl sutures were used to bring the skin and dermis back together. Dry gauze and tape were then applied. Donavon was then awakened from his anesthesia, extubated in the OR, taken to recovery room in stable condition. Rj Gotti MD Electronically Signed By: RJ GOTTI MD 06/21/17 0943 PATIENT NAME: DONAVON CALLE OPERATIVE REPORT DATE OF : [birth year] PHYSICIAN: RJ GOTTI MD REPORT #: [id number] REPORT IS CONFIDENTIAL AND NOT TO BE RELEASED WITHOUT AUTHORIZATION [address] [address] Signed [facility] /[id number] cc: MD Bola Harris MD Electronically Signed By: RJ GOTTI MD 06/21/17 0943 PATIENT NAME: DONAVON CALLE OPERATIVE REPORT DATE OF : [birth year] PHYSICIAN: RJ GOTTI MD REPORT #: [id number] REPORT IS CONFIDENTIAL AND NOT TO BE RELEASED WITHOUT AUTHORIZATION
--- NOTE | 2017-06-21 10:45 | NUR ---
ABD DRESSING DC'D PER DR GOTTI. MIDLINE INCISION WELL APPROXIMATED. NO BLEEDING, DRAINAGE, OR REDNESS NOTED.
--- NOTE | 2017-06-21 11:12 | NUR ---
PT AMB HALLWAY WITH 4POINT CORRECTIONAL RESTRAINTS IN PLACE, ABEL WELL. 1 LEASE ADMINISTRATION ANALYST SBA WITH PT.
--- NOTE | 2017-06-21 13:39 | NUR ---
PT SLEEPING SOUNDLY, EYES CLOSED, RESP EVEN AND UNLABORED. CORRECTIONAL OFFICERS AT BEDSIDE.
--- NOTE | 2017-06-21 14:43 | NUR ---
PT C/O 12/09 ABD PAIN, MEDICATED WITH 2 TABS NORCO. PT ASKING IF HE CAN HAVE SOLID FOOD. CALLED DR. GOTTI FOR ORDER TO ADVANCE TO FULL LIQUIDS. PT UP AMB WITH CORRECTIONAL OFFICERS AT THIS TIME. REPORTED POSITIVE FLATUS, DENIES NAUSEA.
--- NOTE | 2017-06-21 15:31 | NUR ---
PT SHOWERED INDEPENDENTLY WITH SUPERVISION OF CORRECTIONAL OFFICERS. BACK TO BED AT THIS TIME STATES "THAT SHOWER WAS GREAT AND I'M FEELING SO MUCH BETTER." RATING PAIN 2/10. DENIES NAUSEA. ORDERED PUDDING AND YOGURT TO EAT AT THIS TIME. IV INFUSING WNL. INCISION REMAINS WELL APPROXIMATED, NO DRAINAGE NOTED.
--- NOTE | 2017-06-21 17:09 | NUR ---
PT ABEL PUDDING AND YOGURT. SITTING IN BED WATCHING TV AT THIS TIME. ENGAGING IN SMALL TALK WITH THIS RN, SMILING AND LAUGHING. REQUESTING "NAUSEA AND PAIN MEDS AFTER DINNER." CORRECTIONAL OFFICERS AT BEDSIDE. CALL LIGHT WITHIN REACH.
--- NOTE | 2017-06-21 18:01 | NUR ---
PT ABEL FULL LIQUIDS, CREAM OF CHICKEN, PUDDING, AND YOGURT. REQUESTED PAIN AND NAUSEA MEDS ALTHOUGH DENIES NAUSEA. RATES PAIN /10. MEDICATED WITH ZOFRAN AND NORCO. CALL LIGHT WITHIN REACH.
--- NOTE | 2017-06-21 20:53 | NUR ---
PT ASSESSMENT COMPLETE. PT REPORTS NAUSEA AFTER USING THE BATHROOM. PRN PHENERGAN ADMINISTERED OVER 10 MIN ON PUMP, DILUTED IN 20 ML NS, . PT REQUESTING PRN SLEEP AID, ADMINISTERED. PT STATES THAT HE CANNOT WAIT TO EAT SOLID FOOD, ADVISED PT TO TAKE EATING SLOW DUE TO NAUSEA. PT STATES THAT NAUSEA IS NOT DUE TO EATING, DUE TO PRESSURE OF NEEDING TO VOID. BT'S HYPOACTIVE. PT REPORTS PASSING FLATUS. ABD TENDER, NONDISTENDED. INCISION WELL APPROXIMATED, NO DRAINAGE NOTED. PT DENIES OTHER NEEDS AT THIS TIME. CALL LIGHT WITHIN REACH.
--- NOTE | 2017-06-21 23:31 | NUR ---
PT RESTING IN BED WITH EYES CLOSED. RESPIRATIONS EVEN AND UNLABORED. SAO2 96%. NO S/SX OF DISTRESS NOTED. CALL LIGHT WITHIN REACH, GUARDS AT BEDSIDE.
--- NOTE | 2017-06-22 02:23 | NUR ---
PT UP TO USE THE BATHROOM WITH SBA. PT TOLERATED WELL. PT RATES PAIN 7/10 ONCE BACK TO BED, WELL REPORTS ONSET OF NAUSEA AFTER GETTING UP. PRN NORCO AND ZOFRAN ADMINISTERED. PT ASSESSMENT COMPLETE. PT EXPRESSES CONCERN OVER SMALL AMOUNT OF BLOOD DRIED TO GOWN, PT REASSURED THAT THIS IS NORMAL. SURGICAL SITE REMAINS WELL APPROXIMATED. NO ACTIVE DRAINAGE NOTED. BT'S HYPOACTIVE, ABD REMAINS TENDER. PT DENIES FURTHER NEEDS AT THIS TIME. CALL LIGHT WITHIN REACH. BRANDYN AT BEDSIDE.
--- NOTE | 2017-06-22 04:53 | NUR ---
PT RESTING IN BED WITH EYES CLOSED. RESPIRATIONS EVEN AND UNLABORED, SA02 92%. PT WAKES BRIEFLY WHILE FLOOR WORKER TRANSFER BAY IN DOORWAY. PT STATES THAT PAIN PILLS HAS HELPED WITH PAIN. DENIES OTHER NEEDS AT THIS TIME. CALL LIGHT WITHIN REACH, GUARDS PRESENT AT BEDSIDE.
--- NOTE | 2017-06-22 04:57 | NUR ---
PT HAVING INTERMITTENT PAIN/ NAUSEA THROUGHOUT THE SHIFT, ESPECIALLY AFTER PT UP AMBULATING TO BATHROOM. PRN NORCO, PHENERGAN, ZOFRAN ADMINISTERED. PT DENIES NAUSEA ASSOCIATED WITH EATING, STATES IT OCCURS MOSTLY WITH AMBULATION. MIDLINE INCISION RYAN, EDGES WELL APPROXIMATELY, SCANT RED DRAINAGE TO PT'S GOWN. BT'S HYPOACTIVE, PT PASSING FLATUS, ABD TENDER TO TOUCH, MILDLY DISTENDED. UO QS. D5LR @ 100. SBA, PT AMBULATING WITH GUARDS. CONTINUOUS PULSE OX IN PLACE.
--- NOTE | 2017-06-22 06:47 | NUR ---
PT CALLS, REPORTS PAIN 7/10 TO ABD AFTER GOING TO THE BATHROOM. PRN NORCO ADMINISTERED. PT REPORTS SLIGHT NAUSEA. PT ALSO INQUIRING ABOUT ADVANCING DIET. EDUCATION PROVIDED. PT STATES THAT NAUSEA IS RELATED TO GETTING UP AND GOING TO THE BATHROOM. PT STATES THAT WHEN HE LAYS DOWN NAUSEA SUBSIDES SOME. PT DENIES OTHER NEEDS AT THIS TIME. CALL LIGHT WITHIN REACH. BRANDYN AT BEDSIDE.
--- NOTE | 2017-06-22 07:04 | NUR ---
BEDSIDE REPORT FROM RADHA GARG. PT IN BED, BRANDYN AT BEDSIDE. VISUALIZED MIDLINE ABD INCISION, WNL. PT DENIED NEEDS AT THIS TIME.
--- NOTE | 2017-06-22 07:55 | NUR ---
took patient his breakfast, nurse was in room.
--- NOTE | 2017-06-22 07:57 | NUR ---
PT IN BED, EATING BREAKFAST. DENIES NAUSEA. RATES PAIN TO ABDOMEN 4/10, REPORTS THIS IS A TOLERABLE LEVEL OF PAIN AT THIS TIME.
--- NOTE | 2017-06-22 09:30 | NUR ---
PT AMBULATED IN HALLS WITH GAURDS. APPEARED TO TOLERATE WELL. STEADY ON FEET.
--- NOTE | 2017-06-22 09:40 | NUR ---
PT CALLS FOR PRN PAIN MEDICATION. BY THE TIME WRTIER ARRIVED IN ROOM PT RESTING WITH EYES CLOSED. PT DOES NOT WAKE WHILE RD LAB TECHNICIAN IN ROOM TALKING WITH GUARDS. DID NOT WAKE PT FOR PRN ADMINISTRATION. GUARDS AGREE TO LET PT KNOW PRN AVAILABLE WHEN PT WAKES. CALL LIGHT WITHIN PT'S REACH.
--- NOTE | 2017-06-22 09:48 | NUR ---
DR. GOTTI IN TO SEE PT. [address] GOTTI ASSESSED PT. PT STATED THAT HE FEELS READY TO ADVANCE DIET, STATED "I WANT SOME REAL FOOD". DR. GOTTI EXPLAINED TO PT THAT HE WOULD ADVANCE TO A SOFT DIET, AND THAT HE NEEDS TO WATCH FOR SIGNS OF DISTENTION, OR IF HE BECOMES NAUSEATED, UNCOMFORTABLE, OR PAINFUL WITH THIS ADVANCE IN DIET, TO NOTIFY NURSING STAFF IF ANY OF THESE THINGS OCCUR. PT VERBALIZED UNDERSTANDING.
--- NOTE | 2017-06-22 10:42 | NUR ---
PT IN BED, AWAKE, ALERT. DENIED NEEDS AT THIS TIME. DID C/O GAS PAIN, STATED THAT HE PLANS TO WALK IN HALLS SHORTLY TO ASSIST IN EASING THIS DISCOMFORT. FEDERICADS REMAIN AT BEDSIDE.
--- NOTE | 2017-06-22 10:44 | NUR ---
PT AMBULATING IN HALLS WITH GAURDS AT SIDE, TOLERATING WELL AT THIS TIME.
--- NOTE | 2017-06-22 11:33 | NUR ---
PT C/O 6/10 PAIN TO ABDOMEN. GAVE NORCO 5/325 MG 2 TABS PO PRN. PT SITTING UP IN BED. DENIED OTHER NEEDS.
--- NOTE | 2017-06-22 12:13 | NUR ---
PT GIVEN SOFT DIET. PT NOT ALLOWED METAL UTENSILS PER CARE HOME POLICY, AND PT HAS EATEN PLASTIC ITEMS IN RECENT PAST. CALLED DR. GOTTI REGARDING UTENSILES FOR PT TO USE WHEN EATING MEAL. DR. GOTTI STATED THAT PT SHOULD BE GIVEN METAL UTENSILES FOR MEALS. THIS RN NOTIFIED DR. GOTTI THAT THIS WAS AGAINST CARE HOME POLICY. ASKED DR. GOTTI IF PT SHOULD BE GIVEN PLASTIC UTENSILS TO EAT WITH, DR. GOTTI REPLIED THAT IF PLASTIC UTENSILES WERE GIVEN TO PT, THE GAURDS WOULD NEED TO ENSURE THAT PT DID NOT EAT THESE. THIS RN SPOKE WITH CHARGE POSTER REGARDING THIS, CHARGE POSTER INDICATED THAT HE WAS NOT COMFORTABLE ALLOWING PT TO HAVE PLASTIC UTENSILES, STATED THAT AT THE CARE HOME IN INSTANCES SUCH THIS, PRISONERS THAT HAVE EATEN INEDIBLE ITEMS ARE NOT ALLOWED UTENSILES.
--- NOTE | 2017-06-22 14:59 | NUR ---
PT IN BED, AWAKE, ALERT, ORIENTED X 3. DENIED NAUSEA. REPORTED PASSING FLATUS, DENIED HAVING BM.
--- NOTE | 2017-06-22 15:17 | NUR ---
PT AMBULATING IN HALLS WITH GAURDS. HAS SHACKLES ON X 4. STEADY ON FEET. TOLERATING AMBULATION WELL.
--- NOTE | 2017-06-22 15:56 | NUR ---
PT C/O 6/10 PAIN TO ABDOMEN. GAVE NORCO 5/325 MG 2 TABS PO PRN. 2 GAURDS AT BEDSIDE PT REMAINS IN 4 POINT SCHACKLE RESTRAINTS. PT REPORTS PASSING GAS ON WALK, NO BM THUS FAR.
--- NOTE | 2017-06-22 16:20 | NUR ---
PT AMBULATED IN HALLS X 4 THUS FAR THIS SHIFT. MIDLINE ABDOMINAL INCISION WNL, KNIT GOODS MENDER. PT REPORTED PASSING GAS BUT NO BM THIS SHIFT. HAS D5LR INFUSING AT 50 CC/HR. PT HAD NORCO 5/325 MG 2 TABS PO PRN X 2 DOSES THIS SHIFT. PT ADVANCED TO SOFT DIET, TOLERATING WELL THUS FAR. UP WITH STANDBY ASSIST FROM [employer], STEADY ON FEET. PT ALERT, ORIENTED X 4.
--- NOTE | 2017-06-22 18:35 | NUR ---
PT AMBULATED IN HALLS WITH BRANDYN AT SIDE. IS NOW BACK IN BED. RATES PAIN TO ABDOMEN 5/10 AT THIS TIME, DENIES NEEDS. PT REPORTED THAT HE ATE HIS DINNER TOO QUICKLY, REPORTED SOME ASSOCIATED NAUSEA WITH THAT, BUT NO EMESIS.
--- NOTE | 2017-06-22 18:47 | NUR ---
PT CONTINUED TO C/O NAUSEA, GAVE ZOFRAN 8 MG IV PRN. PT HAS HAD NO EPISODES OF EMESIS.
--- NOTE | 2017-06-22 20:28 | NUR ---
PT RESTING IN BED WATCHING TV. PT ASSESSMENT COMPLETE. PT INQUIRING ABOUT MEDICATION TO HELP HIM PASS GAS. ENCOURAGED PT TO AMBULATE. PT STATES THAT HE ALREADY HAS BEEN AMBULATING. PT STATES THAT HE WAS PASSING GAS EARLIER IN THE DAY, NO FLATUS SINCE APPROXIMATELY LUNCH TIME PER PT. BT'S HYPOACTIVE. ABD TENDER, MILDLY DISTENDED. MIDLINE INCISION WELL APPROXIMATED, NO DRAINAGE NOTED. PT DENIES OTHER NEEDS AT THIS TIME. CALL LIGHT WITHIN REACH. GUARDS PRESENT AT BEDSIDE X 2.
--- NOTE | 2017-06-23 00:46 | NUR ---
PT RESTING IN BED WITH EYES CLOSED. RESPIRATIONS EVEN AND UNLABORED. SA02 94%. PT APPEARS TO BE SLEEPING. PT DOES NOT WAKE WHILE TIRE LAYER IN DOORWAY. GUARDS PRESENT AT BEDSIDE X 2. CALL LIGHT WITHIN PT'S REACH.
--- NOTE | 2017-06-23 02:07 | NUR ---
PT RESTING IN BED WITH EYE CLOSED. SAO2 95%. PT ASSESSMENT COMPLETE. PT REMAINS DROWSY THROUGHOUT ASSESSMENT, BUT FOLLOWS COMMANDS WITH EYES CLOSED. ASSESSMENT UNCHANGED FROM PREVIOUS. PT DENIES FURTHER NEEDS, RESTING WITH EYES CLOSED WHEN POLISHING MACHINE OPERATOR HELPER LEAVES THE ROOM. GUARDS REMAIN PRESENT AT BEDSIDE X2. CALL LIGHT WITHIN PT'S REACH.
--- NOTE | 2017-06-23 03:50 | NUR ---
PT UP TO USE THE BATHROOM WITH TECHNICIAN TRAINEE ASSIST. PT BACK TO BED, REPORTING PAIN 12/09. PRN PAIN MEDICATION ADMINISTERED. PT DENIES OTHER NEEDS AT THIS TIME. CALL LIGHT WITHIN REACH.
--- NOTE | 2017-06-23 04:19 | NUR ---
PT USES CALL LIGHT, REQUESTING PRN NAUSEA MEDICATION. PT STATES THAT HE BECAME NAUSEATED WHEN UP USING THE BATHROOM, HAS NOT SUBSIDED SINCE LAYING DOWN. PRN ZOFRAN ADMINISTERED. PT DENIES FURTHER NEEDS AT THIS TIME. CALL LIGHT WITHIN REACH, GUARDS PRESENT AT BEDSIDE X 2.
--- NOTE | 2017-06-23 04:31 | NUR ---
PT SLEPT WELL THROUGHOUT THE NIGHT. NORCO X 1, ZOFRAN X 1. CONTINUOUS PULSE OX. MIDLINE INCISION STEEL ANALYST, NO NEW DRAINAGE. ABD TENDER, MILDLY DISTENDED. BT'S HYPOACTIVE. PT DENIES FLATUS THIS SHIFT. SBA. D5LR @ 50. UO QS.
--- NOTE | 2017-06-23 06:05 | NUR ---
PT LYING IN BED WATCHING TV. PT STATES THAT PAIN AND NAUSEA ARE BOTH IMPROVED. PT DENIES OTHER NEEDS AT THIS TIME. CALL LIGHT WITHIN REACH.
--- NOTE | 2017-06-23 06:47 | NUR ---
DR. GOTTI IN ROOM TO SEE PT, UPDATED REGARDING POC. PT INQUIRES REGARDING UTENSIL RESTRICTION. INFORMED PT THAT WE ARE FOLLOWING [employer] REGARDING UTENSILS. LOAN SERVICING SPECIALIST IN ROOM STATES THAT HE WILL CALL LONG TERM TO CLARIFY. AFTER CALL HE CONFIRMS UTENSIL RESTRICTION. PT DENIES OTHER NEEDS. CALL LIGHT WITHIN REACH.
--- NOTE | 2017-06-23 06:52 | NUR ---
DR GOTTI IN TO SEE PT. ORDER NOTED TO INCREASE IV FLUIDS TO 75ML/HR. PT IN GOOD SPIRITS, TALKING WITH GUARDS. STATES HE SLEPT WELL.
--- NOTE | 2017-06-23 07:41 | NUR ---
PT IN BED. C/O 5/10 PAIN TO ABDOMEN. DENIES PASSING GAS THIS AM THUS FAR. ABDOMINAL INCISION WNL, WELL APROXIMATED. GAVE NORCO 5/325 MG 2 TABS PO PRN. EDUCATED ON IMPORTANCE OF ACTIVITY, PT VERBALIZED UNDERSTANDING. DENIED NAUSEA AT THIS TIME.
--- NOTE | 2017-06-23 09:06 | NUR ---
PT ATE 100% OF BREAKFAST. PT REPORTED THAT HE ATE SLOWER THAN HE DID AT DINNER YESTERDAY. REPORTED "SOME" NAUSEA FOLLOWING BREAKFAST. THIS RN EDUCATED PT TO EAT VERY SLOWLY, AND TO STOP EATING IF HE EXPERIENCES NAUSEA. PT AGREED. PT UP TO BATHROOM WITH ASSISTANCE FROM JOHN. STEADY ON FEET. ENCOURAGED PT TO AMBULATE IN HALLS, PT AGREED. PROVIDED THE 2 BRANDYN WITH EDUCATION REGARDING PT'S NEED TO AMBULATE IN HALLS AT LEAST 4 TIMES DAILY, BRANDYN VERBALIZED UNDERSTANDING.
--- NOTE | 2017-06-23 09:15 | NUR ---
PATIENT AMBULATING HALLWAY.
--- NOTE | 2017-06-23 09:47 | NUR ---
PT IN BED. DID AMBULATE IN HALLS WITH GAURDS THIS AM, REPORTED WALKING "1 LAP" AROUND HALLS. PT TOLERATED WELL. REPORTS PAIN TO ABDOMEN IS 3/10 AT THIS TIME, STATES THIS IS A TOLERABLE LEVEL OF PAIN AT THIS TIME. NO C/O NAUSEA. GAURDS AT BEDSIDE X 2. PT REMAINS IN DEACONESS HOSPITALLES X 4.
--- NOTE | 2017-06-23 10:56 | NUR ---
PATIENT RESTING IN BED. PATIENT STATED THAT HE'S IN PAIN DUE TO NOT BEING ABLE TO PEE. THIS BOAT PILOT GOT THE PATIENT UP TO AMBULATE IN HALLWAY. PATIENT THEN VOIDED 600ML OUT. PATIENT WOULD LIKE TO WASH UP AFTER WALK.
--- NOTE | 2017-06-23 10:58 | NUR ---
PT UP AMBULATING IN HALLWAYS WITH GAURDS. STEADY ON FEET, TOLERATING WELL.
--- NOTE | 2017-06-23 11:00 | NUR ---
PATIENT UP TO BATHROOM TO BRUSH TEETH. TOOTH BRUSH DISCARDED AFTER USE. LINENS CHANGED. PATIENT BACK TO BED. FRESH ICE WATER GIVEN.
--- NOTE | 2017-06-23 11:54 | CONS ---
[facility] [address], [place] [address] Signed DATE OF CONSULTATION: 06/19/2017 CHIEF COMPLAINT: Vomiting with history of foreign body ingestion. HISTORY OF PRESENT ILLNESS: Donavon is a 21-year-old gentleman with schizophrenia from our [facility]. We just had him in the hospital last few days. He had swallowed the inner portion of an ink pen including the tip. He also swallowed two rocks, the plastic end of a toothbrush handle as well as some Coban and some foam dressing. I had taken him to the endoscopy suite and we removed the Coban, the foam dressing, and most of the inner portion of the ink pen. The two rocks and the tip of the ink pen were . We had kept him in the hospital multiple days. I gave him laxatives and he seemed to pass the two rocks and the toothbrush handle. The tip of the pen seemed to be near the ileocecal valve in the right lower quadrant. His white count has come down. His fevers have come down and he was doing much better. We allowed him to go back to the halfway with plans to repeat the x-rays in a few days. For reasons that are not explainable, he was having continuous vomiting at the halfway. They brought him back to the emergency room same day, so I just readmitted him overnight. The nurses tell me he slept all night. He has no further vomiting. He has done just fine. This morning, he seems to be in no distress. PAST MEDICAL HISTORY: Schizophrenia, asthma, and self-harm behavior. PAST SURGICAL HISTORY: Appendectomy and EGD with foreign body removal. SOCIAL HISTORY: He does not smoke or drink. He resides at our [facility]. Dr. Jc Henley is his primary care provider. FAMILY HISTORY: Not reviewed. REVIEW OF SYSTEMS: He had 10-systems reviewed and he was said they were really nothing new since I saw him earlier in the morning. He told me he is from the [place] area and apparently he was adopted. ALLERGIES: Peanuts, metformin, trazodone, and nefazodone. Electronically Signed By: RJ OWENS MD 06/23/17 1154 PATIENT NAME: DONAVON CALLE CONSULTATION DATE OF : [birth year] PHYSICIAN: RJ OWENS MD REPORT #: [id number] REPORT IS CONFIDENTIAL AND NOT TO BE RELEASED WITHOUT AUTHORIZATION [facility] [address] [place] [id number] Signed MEDICATIONS: Benadryl, hydroxyzine, Geodon, amitriptyline, fluoxetine, and albuterol. PHYSICAL EXAMINATION: GENERAL: He is afebrile. His vital signs are stable. He is alert, awake, and interactive. He does not appear to be in any distress. He is not systemically ill or toxic. LUNGS: Clear to auscultation. HEART: Regular rate and rhythm. ABDOMEN: Soft and flat, nontender throughout. As always, he normally points to the xiphoid area when he complains of his abdominal pain. LABORATORY DATA: Labs are pending. RADIOGRAPHIC STUDIES: Show a metallic tip of the pen in the right lower quadrant. It has not moved down the last 3-4 days. ASSESSMENT AND PLAN: Donavon is a 21-year-old gentleman from our [facility], who presents as above. He seems to be doing fine yet the tip of a ballpoint pen has not moved in 3 or 4 days. He was recommended in that situation to go and retrieve the foreign object. It may very well be at the ileocecal valve. I have reviewed this with Donavon in detail that this will require a laparotomy and we will have to open the bowel to remove the foreign body. He understands there is risk including, but not limited to bleeding, infection, scarring, change in contour of the skin, damage to bowel, leakage of the bowel, as well as inability to find all the foreign bodies. He has expressed understanding and wished to proceed as above. Rj Owens MD [facility]/MODL /[id number] cc: Rj Owens MD Electronically Signed By: RJ OWENS MD 06/23/17 1154 PATIENT NAME: DONAVON CALLE CONSULTATION DATE OF : [birth year] PHYSICIAN: RJ OWENS MD REPORT #: [id number] REPORT IS CONFIDENTIAL AND NOT TO BE RELEASED WITHOUT AUTHORIZATION [facility] [address] [place] [id number] Signed Bola Henley MD Electronically Signed By: RJ OWENS MD 06/23/17 1154 PATIENT NAME: DONAVON CALLE EBONIE CONSULTATION DATE OF : [birth year] PHYSICIAN: RJ OWENS MD REPORT #: [id number] REPORT IS CONFIDENTIAL AND NOT TO BE RELEASED WITHOUT AUTHORIZATION
--- NOTE | 2017-06-23 12:16 | NUR ---
PT IN BED. RATES PAIN TO ABDOMEN 09/09. REPORTED THAT HE WALKED AROUND MED/SURG HALLWAY "LOOP" ONCE THE LAST TIME HE AMBULATED. ENCOURAGED PT TO INCREASE THE DISTANCE HE AMBULATES EACH TIME, INCREASING THE NUMBER OF "LOOPS" THAT HE AMBULATES THE NEXT TIME HE WALKS IN HALLS. PT VERBALIZED AGREEMENT.
--- NOTE | 2017-06-23 12:28 | NUR ---
PT C/O 4/10 PAIN TO ABDOMEN. GAVE NORCO 5/325 MG, 2 TABS PO PRN. PT REQUESTED TO BE ABLE TO USE PLASTIC BARRERA WHEN EATING. THIS HAD ALREADY BEEN CLARRIFIED YESTERDAY BY DR. GOTTI, WHO HAD INDICATED THAT THE CORRECTIONS OFFICERS WITH PT WOULD NEED TO ENSURE PT DID NOT EAT ANY OF THE PLASTIC BARRERA, BUT THE CORRECTIONS OFFICERS INDICATED THAT THEY COULD NOT ENSURE THIS. CORRECTIONS OFFICERS WITH PT THIS SHIFT ASKED IF PT WERE ALLOWED TO HAVE PLASTIC BARRERA. THIS RN ASKED CORRECTIONS OFFICERS IF THEY WERE WILLING TO ACCEPT RESPONSIBILITY OF ENSURING PT DID NOT EAT PLASTIC BARRERA. CORRECTIONS OFFICERS INDICATED THAT THEY WERE NOT WILLING TO ACCEPT THIS RESPONSIBILITY. VERRIFIED AGAIN WITH DR. GOTTI REGARDING UTENSILS FOR PT. NOTIFIED HIM THAT CORRECTIONS OFFICERS WERE NOT WILLING TO ACCEPT RESPONSIBILITY OF ENSURING PT DID NOT EAT PLASTIC BARRERA. DR. GOTTI AGREED WITH THIS RN THAT WE WOULD CONTINUE TO NOT GIVE PLASTIC BARRERA TO PT. PT IS A PRISONER, SO METAL SILVER BARRERA IS NOT TO BE GIVEN TO PT PER [facility] POLICY.
--- NOTE | 2017-06-23 13:00 | NUR ---
PATIENT AMBULATING HALLWAY WITH GUARDS.
--- NOTE | 2017-06-23 13:02 | NUR ---
PT UP AMBULATING IN HALLS WITH CORRECTIONS OFFICERS. STEADY ON FEET.
--- NOTE | 2017-06-23 14:30 | NUR ---
PATIENT RESTING IN BED WITH EYES CLOSED. PATIENT WOULD LIKE TO SHOWER LATER IN THE EVENING. FRESH ICE WATER GIVEN. NO OTHER NEEDS AT THIS TIME.
--- NOTE | 2017-06-23 14:35 | NUR ---
PT IN BED. DISCUSSED PLAN FOR PT TO SHOWER PRIOR TO DINNER TODAY. PT VERBALIZED AGREEMENT.
--- NOTE | 2017-06-23 15:39 | NUR ---
ASSISTED PT IN GETTING PREPARED FOR SHOWER. IV SITE WRAPPED WITH PLASTIC AND TAPE, SHOWER SET UP WITH WASHCLOTHS, SOAP, TOWELS, AND FRESH GOWN AND SOCKS. GACALVIN ASSISTING INMATE, TOOK SHACKLES OFF UPPER EXTREMITIES, STATED THAT THEY WOULD CALL WHEN PT FINISHED WITH SHOWER.
--- NOTE | 2017-06-23 16:26 | NUR ---
PT DOING WELL, TOLERATED SOFT DIET THUS FAR THIS SHIFT WITH NO REPORTS OF NAUSEA OR EMESIS. AMBULATED IN HALLS X 4 THIS SHIFT THUS FAR. PT SHOWERED THIS AFTERNOON. MIDLINE INCISION WELL APPROXIMATED, WNL. MILD DISTENTION OF ABDOMEN, TENDER. BOWEL TONES HYPOACTIVE. PT TOOK NORCO 5/325 MG, 2 TABS AT A TIME TO CONTROL ABDOMINAL PAIN. URINATING QUANTITY SUFFICIENT.
--- NOTE | 2017-06-23 18:30 | NUR ---
PT C/O 4/10 PAIN TO ABDOMEN, GAVE NORCO 5/325 MG 2 TABS PO PRN. PT REPORTED THAT HE WAS ABLE TO EAT 100% OF SOFT DINNER, AND DENIED NAUSEA. DENIED OTHER NEEDS AT THIS TIME. PT SHACKLED X 4, AND HAS 2 GAURDS AT BEDSIDE.
--- NOTE | 2017-06-23 18:43 | NUR ---
PATIENT RESTING IN BED WATCHING TV. CALL BUTTON IN REACH. FRESH ICE WATER GIVEN. NO OTHER NEEDS AT THIS TIME.
--- NOTE | 2017-06-23 21:02 | NUR ---
PT LYING IN BED WATCHING TV. RATES PAIN 4.10, STATES THAT THIS IS A TOLERABLE NUMBER. PT AGREES THAT PAIN AND NAUSEA HAVE BEEN MUCH BETTER TODAY. PT STATES THAT HIS PAIN IS SLIGHTLY ELEVATED AT THE MOMENT DUE TO LAUGHING AT TV. DENIES NEEDS FOR PAIN MEDICATION AT THIS TIME. PT ASSESSMENT COMPLETE. PT REPORTS PASSING FLATUS ONLY ONCE TODAY. BT'S HYPOACTIVE. TENDERNESS TO PALPATION CONTINUES. EDGES OF WOUND WELL APPROXIMATED, NO DRAINAGE NOTED. PT INQUIRING WITH CORROSION CONTROL ENGINEER REGARDING UTENSIL RESTRICTION. WOULD LIKE TO BE REMINDED TO TALK TO DR HARDEN: UTENSIL RESTRICTION PT FEELS THAT THIS IS UNFAIR. PT REMINDED THAT WE ARE FOLLOWING [facility] POLICY. PT STATES THAT SHEET METAL MECHANIC HAS SINCE CLARIFIED WITH OFFICER IN CHARGE AT THE FACILITY. HOWEVER, SAID STUDIO TECHNICIAN VIDEO OPERATOR IS NOT PRESENT AT THIS TIME. PT DENIES FURTHER NEEDS AT THIS TIME. CALL LIGHT WITHIN REACH, PT AGREES TO USE LIGHT FOR NEEDS. BRANDYN PRESENT AT BEDSIDE X2.
--- NOTE | 2017-06-23 23:37 | NUR ---
PT RESTING IN BED WITH EYES CLOSED. RESPIRATIONS EVEN AND UNLABORED. SAO2 94%. PT DOES NOT WAKE WHILE REHAB AID IN ROOM, APPEARS TO BE SLEEPING. CALL LIGHT WITHIN REACH, GUARDS AT BEDSIDE X2.
--- NOTE | 2017-06-24 01:40 | NUR ---
PT RESTING IN BED WITH EYES CLOSED. RESPIRATIONS EVEN AND UNLABORED. SAO2 @ 93%. NO S/SX OF DISTRESS NOTED. PT DOES NOT WAKE WHILE COLOR BUFFER IN DOORWAY. GUARDS PRESENT AT BEDSIDE.
--- NOTE | 2017-06-24 03:04 | NUR ---
PT RESTING IN BED WITH EYES CLOSED. DOES NOT WAKE WHEN CUSTOMER SUPPORT AGENT ENTERS THE ROOM. PT WAKES TO TOUCH AND NAME. PT ASSESSMENT COMPLETE. PT REMAINS DROWSY THROUGHOUT ASSESSMENT, ABLE TO FOLLOW DIRECTIONS. DENIES NAUSEA AND VOMITTING AT THIS TIME. ASSESSMENT UNCHANGED FROM PREVIOUS. PT DENIES OTHER NEEDS. CALL LIGHT WITHIN REACH. GUARDS AT BEDSIDE.
--- NOTE | 2017-06-24 04:42 | NUR ---
PT RESTED WELL THIS SHIFT. NO REPORTS OF PAIN OR NAUSEA. CONTINUOUS PULSE OX, RA. MIDLINE INCISION REMAINS STREET LIGHT REPAIRER, WITH NO DRAINANGE. PT REPORTS MINIMAL FLATUS.ETIENNE. SELENE X 4. LURDES@ 75. UO QS.
--- NOTE | 2017-06-24 07:02 | NUR ---
RECIEVED BEDSIDE REPORT FROM RADHA GARG. PT AWAKE, ALERT, DENIED NEEDS. BRANDYN AT BEDSIDE.
--- NOTE | 2017-06-24 07:26 | NUR ---
PT C/O 5/10 PAIN TO ABDOMEN. GAVE NORCO 5/325 MG PO PRN, 1 TAB.
--- NOTE | 2017-06-24 07:33 | NUR ---
PT'S BOWEL TONES ARE HYPOACTIVE, AND PT DENIES PASSING FLATUS LAST NIGHT, OR THUS FAR THIS MORNING. PROVIDED EDUCATION REGARDING NEED TO AMBULATE IN HALLS. PT VERBALIZED UNDERSTANDING.
--- NOTE | 2017-06-24 08:15 | NUR ---
PATIENT SITTING STRAIGHT UP IN BED EATING BREAKFAST. GUARDS IN ROOM. TALKED TO PATIENT ABOUT WALKING, ORAL CARE, AND WASHING HANDS AND FACE AFTER HE'S DONE EATING. PATIENT AGREED. CALL BUTTON IN REACH. NO OTHER NEEDS AT THIS TIME.
--- NOTE | 2017-06-24 08:53 | NUR ---
PATIENT UP TO WASH FACE AND BRUSH TEETH. TOOTH BRUSH TAKEN AWAY AFTERWARDS. CLEAN LINENS. PATIENT UP TO AMBULATE HALLWAY WITH THE GUARDS. TOLD PATIENT TO WALK TWO FULL LAPS. PATIENT ASKING IF DR. GOTTI IS HERE YET.
--- NOTE | 2017-06-24 09:14 | NUR ---
PT IN BED, HOB ELEVATED. WHEN ASKED ABOUT HIS ABDOMINAL PAIN, PT STATED THAT HE FEELS GOOD. RATED PAIN 4/10. REPORTED PASSING FLATUS X 2. PT REPORTED AMBULATING IN HALLS, AROUND "LOOP" X 2. DENIED NEEDS.
--- NOTE | 2017-06-24 10:08 | NUR ---
PATIENT RESTING IN BED WATCHING TV. BRANDYN IN ROOM CALL BUTTON IN REACH. NO OTHER NEEDS AT THIS TIME.
--- NOTE | 2017-06-24 11:00 | NUR ---
PT AMBULATED IN [place], IS NOW BACK IN ROOM, SITTING UP IN BED. REPORTED THAT HIS PAIN IS WELL CONTROLLED, RATED PAIN TO ABDOMEN 4/10. ASSISTED PT IN ORDERING LUNCH, SOFT DIET. PT DENIED NEEDS. STATED "I'M READY TO GO BACK TO THE FACILITY", REFERING TO [facility]. DR. GOTTI HAS NOT YET ROUNDED ON PT. ADVISED PT TO LET DR. GOTTI KNOW HE WANTS TO DISCHARGE TO HOME WHEN HE ROUNDS ON PT. PT DENIES NEEDS.
--- NOTE | 2017-06-24 11:22 | NUR ---
DR. GOTTI IN TO SEE PT, ASSESSED PT. PT REPORTED TO DR. GOTTI THAT HE HAS BEEN PASSING GAS, AND THAT HE FEELS READY TO DISCHARGE TO HOME. DR. GOTTI INFORMED PT THAT HE WOULD DISCHARGE TO FACILITY, [facility], TODAY, AND THAT DR. GOTTI WOULD SEE PT FOR FOLLOW UP AT [facility]. PT VERBALIZED AGREEMENT AND UNDERSTANDING. PT ASKED IF HE WOULD STILL BE ABLE TO BE ON A TOP BUNK BED, DR. GOTTI STATED THAT HE COULD SO LONG HE DID NOT JUMP DOWN OFF OF BUNK, BUT RATHER CLIMB DOWN. PT VERBALIZED UNDERSTANDING AND AGREEMENT. DR. GOTTI ALSO INFOMED PT THAT HE COULD LIFT NO MORE THAN 20 LBS FOR THE NEXT MONTH, THEN COULD INCREASE TO 50 LBS MAXIMUM LIFTING FOR THE MONTH FOLLOWING THAT, AND THEN HIS RESTICTION WOULD BE LIFTED. PT VERBALIZED UNDERSTANDING AND AGREEMENT.
[2017-06-24] MEDS ORDERED: NORCO 5-325 TA1 EACH PO (11:35)
--- NOTE | 2017-06-24 11:52 | NUR ---
CALLED REPORT TO [facility], GAVE REPORT TO NURSE BLANCHET. QUESTIONS ASKED AND ANSWERED, NURSE VERBALIZED UNDERSTANDING.
--- NOTE | 2017-06-24 11:58 | NUR ---
CHARGE NOTES, OPERATION REPORT, IMAGING FINDINGS, CONSULT REPORT PRINTED AND PLACED IN [facility] WELL AND DISCHARGE INSTRUCTIONS AND PRESCRIPTION FOR NORCO. WILL BE GIVEN TO GUARDS TO BE TAKEN BACK WITH PT TO [facility].
--- NOTE | 2017-06-24 12:06 | NUR ---
PT GIVEN DISCHARGE INSTRUCTIONS AND EDUCATION. QUESTIONS ASKED AND ANSWERED, PT VERBALIZED UNDERSTANDING OF INSTRUCTIONS.
--- NOTE | 2017-06-25 06:37 | DS ---
[facility] [address] [place], [place] [address] Signed ADMISSION DATE: 06/18/2017 DISCHARGE DATE: 06/24/2017 FINAL DIAGNOSES: GI foreign bodies x3 (two rocks and one pen tip). PROCEDURE: Laparotomy with removal of GI foreign bodies x3 from cecum. HISTORY OF PRESENT ILLNESS: Donavon is a 21-year-old schizophrenic gentleman from our [facility]. He had been placed in segregation. He was upset about that and had swallowed a number of different foreign bodies. We taken him to the endoscopy suite and remove the Coban, foam, and part of the pen from his stomach. However, he had part of a plastic toothbrush handle, two small rocks, and the tip of the pen down in the small bowel. It seemed to move through towards the ileocecal valve and the cecum. We thought maybe the rocks had passed completely along with the toothbrush handle. We discharged him back to the detention with the idea to go ahead and eat and check a followup x-ray in a few days. However, he was very nervous about that, ended up having a lot of nausea and tachycardia, so he was brought back that same day from the detention. I readmitted him and hydrated him overnight. The next day, we repeated the x-ray and we thought once again maybe the two rocks were gone, but certainly the tip of the pin had not moved. We did not know if it was in the cecum or the ileocecal valve. It was certainly in the right lower quadrant. HOSPITAL COURSE: Donavon had been admitted as above. I talked with Donavon several times that if the foreign bodies did not pass, we had to go and retrieve them surgically. He has had a previous appendectomy when he was young as a teenager. We took him to surgery the next day and it took us a few minutes to free up adhesions including the omentum from the right lower quadrant. We carefully palpated the terminal ileum without any success. We used our fluoroscopy machine and we found the tip of the pen and the two rocks actually in the cecum. It took some additional time then to free up the base and lateral aspect of the cecum in order to reach the three foreign bodies. A small hole been made in the cecum and they were retrieved easily. The hole was only a cm wide. We then closed the hole in the base of the cecum in 2 layers with Vicryl and silk sutures. He has done very well postoperatively. We did not use any chandler in his incision. We simply closed the skin and dermis with interrupted subcuticular 3-0 Monocryl sutures. We have advanced his diet. He is doing very well. He looks and feels much better. He has had lots of flatus but no bowel movement yet. He has very little if any pain at all on exam. His incision is healing well. There are no local signs or symptoms of infection. Electronically Signed By: RJ OWENS MD 06/25/17 0637 PATIENT NAME: DONAVON CALLE DISCHARGE SUMMARY DATE OF : [birth year] PHYSICIAN: RJ OWENS MD REPORT #: [id number] REPORT IS CONFIDENTIAL AND NOT TO BE RELEASED WITHOUT AUTHORIZATION [facility] [address] [place] [id number] Signed He has been on his chronic medications as well. Given his progress, we are going to be discharging back to our detention. DISCHARGE PLANS AND MEDICATIONS: Donavon will be discharged back to the detention with a prescription for [place] 5/325 one to two tablets p.o. q.4-6 hours p.r.n. pain. We will dispense 40 tablets with no refills. He can resume all his chronic medications. He is welcomed to follow a regular diet. He does sleep on the top bunk and that is fine, but he has to climb up and on the bunk, he cannot jump off the bunk onto the floor. He can perform his activities of daily living including walking up and down stairs and showering and bathing as usual. He should not lift over 20 pounds for a month, 50 pounds the second month, and then after that, no restrictions. I will see him in about 30 days in followup at the detention. He has expressed understanding and agrees with above plan. Rj Owens MD [facility]/MODL /[id number] cc: MD Bola Harris MD Electronically Signed By: RJ OWENS MD 06/25/17 0637 PATIENT NAME: DONAVON CALLE DISCHARGE SUMMARY DATE OF : [birth year] PHYSICIAN: RJ OWENS MD REPORT #: [id number] REPORT IS CONFIDENTIAL AND NOT TO BE RELEASED WITHOUT AUTHORIZATION
== END 2017-06-24 12:05 | disposition home or self-care (01) | DRG 357 ==
LOC: ED 20:10 → MS 22:24
PROVIDERS: ADMIT Colon & Rectal Surgery
PROC: 0WCG0ZZ Extirpation of Matter from Peritoneal Cavity, Open Approach (ICD-10-PCS; principal; 2017-06-20 10:45)
DX: T18.4XXA Foreign body in colon, initial encounter (principal); F23 Brief psychotic disorder; X58.XXXA Exposure to other specified factors, initial encounter
CPT/HCPCS: 00840; 36415; 51701; 51702; 51798; 71045; 74019; 74020; 74177; 76000; 76942; 80048; 80053; 81001; 83735; 84075; 84100; 85025; 94762; 96361; 96374; 96375; 96376; 99156; 99157; 99284; 99285; G0378; J0131; J0690; J0735; J1100; J1170; J1644; J1885; J2060; J2250; J2405; J2550; J2704; J3010; J3480; J7030; J7120; Q0163; Q0177; Q9967

== ENCOUNTER 2017-06-28 13:55 | Emergency (ER) | payer OTHER ==
[~2017-06-28] VITALS: Ht 175.3 cm; Wt 97.5 kg
[~2017-06-28 13:55] MED LIST changes: +NORCO 5-325 TA1 EACH PO
[2017-06-28] MEDS ORDERED: ZOFRAN ODT4 MG PO (14:20)
[2017-06-28] MEDS ORDERED: ULTRAM50 MG PO (14:20)
== END 2017-06-28 18:20 | disposition home or self-care (01) ==
LOC: ED 13:55
DX: G89.18 Other acute postprocedural pain (principal); R10.33 Periumbilical pain; F20.9 Schizophrenia, unspecified; Z90.49 Acquired absence of other specified parts of digestive tract; Z98.890 Other specified postprocedural states; Z79.899 Other long term (current) drug therapy
CPT/HCPCS: 74019; 74020; 74177; 80053; 81001; 83690; 85025; 96374; 96375; 96376; 99284; J1885; J2405; Q9967

== ENCOUNTER 2017-07-10 08:54 | Observation (INO) | payer OTHER ==
[~2017-07-10] VITALS: Ht 175.3 cm; Wt 96.2 kg
[~2017-07-10 08:54] MED LIST changes: +ZOFRAN ODT4 MG PO
--- NOTE | 2017-07-10 13:12 | NUR ---
PATIENT ADMIT FROM ED, TRANSFER TO BED BY SELF. ADMISSION ASSESSMENT COMPLETED. PATIENT DENIES NAUSEA, REPORT ABD PAIN, RATED @ 6/10. BOWEL TONES HYPOACTIVE. SKIN INTACT EXCEPT MIDLINE SCAR IN THE ABD FROM PREVIOUS ABD SURGERY. ABD TENDERNESS WITH PALPATION. IV SITE PATENT. PATIENT APPEARS TO BE ANXIOUS, REASSURED PATIENT. PATIENT HAD 4 POINTS RESTRAINTS ( PATIENT IS INMATE FROM [facility]). SKIN AT THE RESTRAINT SITE WNL. PATIENT EDUCATE ABOUT PAIN CONTROL AND SAFETY.
[2017-07-10] MEDS ORDERED: GEODON40 MG PO (14:25)
--- NOTE | 2017-07-10 14:29 | NUR ---
MED REC COMPLETE
--- NOTE | 2017-07-10 14:30 | NUR ---
PATIENT RESTING IN BED, REPORTS MILD PAIN. COLD COMPRESS APPLIED. GUARDS IN ROOM AT ALL TIME.
--- NOTE | 2017-07-10 16:20 | NUR ---
PATIENT RESTING IN BED REPORTS MILD ABD PAIN. UPDATE PATIENT ABOUT MD PLAN FOR UPPER ENDOSCOPY THIS PM. GUARD IN ROOM AT ALL TIME.
--- NOTE | 2017-07-10 17:09 | NUR ---
DR GOTTI WAS IN TO SEE PATIENT AND DISCUSS PLAN OF CARE. PATIENT OFF THE FLOOR AT THIS TIME WITH SURGERY NURSE.
--- NOTE | 2017-07-10 17:29 | NUR ---
07/10/17 1720 Sisi Salinas 1720-PATIENT ARRIVED TO PACU ON 6L MASK O2 SAT 100% PATIENT REACTIVE. [facility] AT BEDSIDE.
--- NOTE | 2017-07-10 18:08 | NUR ---
PATIENT BACK FROM PACU AFTER EGD. PATIENT DROWZY. NO APPARENT DISTRESS. VS STABLE. FLUID INFUSING WELL. WILL CONTINUE TO MONITOR. ORDER TO DC PATIENT TONIGHT.
--- NOTE | 2017-07-10 18:37 | NUR ---
Pt. was offered Jello as diet has changed to increase BEHZAD, jello and a spoon was provided. Will continue to monitor.
--- NOTE | 2017-07-10 18:40 | NUR ---
PATIENT AWAKE IN BED WATCHING TV. DENIES NAUSEA, ABLE TO EAT SOME JELLO. REPORT MILD PAIN.
--- NOTE | 2017-07-10 18:43 | NUR ---
PATIENT ADMIT FROM ED. PATIENT HAD EGD DONE THIS PM AND NOTHING WAS FOUND EXCEPT POTATO PEEL. PATIENT WILL BE DC THIS PM TO [facility] PER MD ORDER.
--- NOTE | 2017-07-10 19:15 | NUR ---
Pt. natasharamon calle DC'christina.
--- NOTE | 2017-07-13 08:11 | CONS ---
[facility] [address], [place] [address] Signed DATE OF CONSULTATION: 07/10/2017 REFERRING PHYSICIAN: ER doctor. CHIEF COMPLAINT: Gastric foreign bodies per the patient with history of schizophrenia. HISTORY OF PRESENT ILLNESS: Donavon is a 21-year-old gentleman from our [facility] [place]. He has known schizophrenia. We just had him in the hospital a couple of weeks ago. [facility] where [facility] was [facility] in [facility]. He did not feel it was his fault, so he decided to ingest multiple foreign bodies. We took him for upper endoscopy at that time and took out multiple foreign bodies from his stomach. However, he had two rocks and the tip of a pen that did move from his right lower quadrant for nearly a week. We consequently made a small incision and with the help of our fluoroscopy unit made a small hole in the base of the cecum where we found the two rocks and the pen and removed them. We then closed the cecum and the abdomen and no chandler were used in the skin. He was kept in the hospital, did well, and we [facility]. Earlier in the week, again something was not going right, so he decided to tell the staff that he had swallowed some gauze, two tea bags that have just a tiny staple to hold the tag on the tea bag and some other issues, I believe, a banana peel. He came to the emergency room earlier today and was evaluated by the ER doctor. The on-call surgeon referred him to me, which is perfectly fine since I know Donavon quite well. We admitted him this afternoon and made him n.p.o. and gave him hydration. He immediately was asking for Dilaudid in the ER and when declined for that, he asked for the Toradol. We declined him on all pain medications. Tonight, I met with him after my clinic and explained to Donavon we should go back with the scope and we will look in his stomach and see if there is anything we can remove. Anything that is passed out into the intestine generally will pass on its own. He is very aware of upper endoscopy. He is aware of the need for sedation and in this case we generally use general endotracheal tube anesthesia to protect the airway. He had expressed understanding and wished to proceed. PAST MEDICAL HISTORY: Schizophrenia, asthma, and self-abusive behavior including ingesting foreign bodies. PAST SURGICAL HISTORY: Open appendectomy, circumcision, and laparotomy with foreign body removal from cecum. SOCIAL HISTORY: He does not smoke or drink. [facility] is [facility] [place]. Dr. Bola Henley is his primary care provider. He is adopted with his parents living in Electronically Signed By: RJ GOTTI MD 07/13/17 0811 PATIENT NAME: DONAVON CALLE CONSULTATION DATE OF : [birth year] PHYSICIAN: RJ GOTTI MD REPORT #: [id number] REPORT IS CONFIDENTIAL AND NOT TO BE RELEASED WITHOUT AUTHORIZATION [facility] [address] [place], [place] [address] Signed Hari Melendez in [place], [place]. FAMILY HISTORY: Mom had some type of bone marrow cancer, asthma, and diabetes. Dad had heart failure and renal failure. REVIEW OF SYSTEMS: I reviewed 10 systems with Donavon and really nothing new other than he has decided to swallow more foreign bodies. ALLERGIES: Peanuts, metformin, trazodone, and nefazodone. MEDICATIONS: Fluoxetine, Vistaril, Geodon, and albuterol. PHYSICAL EXAMINATION: VITAL SIGNS: He is afebrile. Vital signs are stable. LUNGS: Clear to auscultation. HEART: Regular rate and rhythm. ABDOMEN: Soft, flat, nontender. His incision is healing well. He has a little breakdown of the skin over the incision next to the umbilicus, over the course, initially drained out some red-colored seroma. It is slowly but surely healing. LABORATORY DATA: None. RADIOGRAPHIC STUDIES: None. ASSESSMENT AND PLAN: Donavon is a 21-year-old gentleman who presents as above. We are going to take him down to our endoscopy suite under anesthesia and we will see what we find in the stomach. He asked me before we went down if he was going to be staying the night and he had various excuses why he needed to stay the night. We have been through this on his prior admission. Generally, he can be easily diverted to something else by our nursing staff. I told him if we did not find anything significant, he would go home tonight. Otherwise, we would adjust the plan depending on the findings. He expressed understanding and wished to proceed. Rj Gotti MD Electronically Signed By: RJ GOTTI MD 07/13/17 0811 PATIENT NAME: DONAVON CALLE CONSULTATION DATE OF : [birth year] PHYSICIAN: RJ GOTTI MD REPORT #: [id number] REPORT IS CONFIDENTIAL AND NOT TO BE RELEASED WITHOUT AUTHORIZATION [address] [place] [address] Signed ALB/MODL /[id number] cc: MD Bola Harris MD Electronically Signed By: RJ GOTTI MD 07/13/17810 PATIENT NAME: DONAVON CALLE CONSULTATION DATE OF : [birth year] PHYSICIAN: RJ GOTTI MD REPORT #: [id number] REPORT IS CONFIDENTIAL AND NOT TO BE RELEASED WITHOUT AUTHORIZATION
--- NOTE | 2017-07-13 08:11 | OR ---
[facility] [address] [place], [place] [address] Signed DATE OF OPERATION: 07/10/2017 SURGEON: Rj Gotti MD PREOPERATIVE DIAGNOSIS: Gastric foreign bodies per patient. POSTOPERATIVE DIAGNOSIS: Minimal, soft, pliable food debris. PROCEDURE: EGD without biopsy. ESTIMATED BLOOD LOSS: None. INDICATIONS: Donavon is a 21-year-old schizophrenic gentleman from our [facility] [place]. We just had Donavon here just a few weeks ago. He had an incident at the [facility] and was placed in segregation. He did not feel it was his fault or his responsibility, so he ended up ingesting a number of different foreign bodies. We had removed a Coban and various objects from the stomach. However, he had 2 small stones and a tip of a pencil that never left the right lower quadrant in multiple days. We did not know if it was at the ileocecal valve or in the cecum itself. When we had sent him home, he had intractable nausea and vomiting, and they brought him immediately right back. We gave him one dose of Dilaudid and he slept the rest of the night. He also told the nurses multiple times that he could not pee and he actually ended up being straight cath and finally we withheld that. We were able to divert his attention and within 20 minutes or so, he was able to urinate. Every day, he had complaints of abdominal pain often at different places, but usually would point to the subxiphoid area, which is miles from where the foreign bodies were located. He has been out of segregation and back on the floor and again had another incident where he was not happy. He had threatened additional foreign bodies as expected. He claimed he swallowed some gauze, tea bags with small staple on each one, I believe the banana peel. Consequently, he was sent back to the emergency room. The ER doctor had started his evaluation. The on-call surgeon deferred Donavon's care to me since I know Donavon well. We put Donavon in the hospital this afternoon with IV fluids. He was asking immediately for Dilaudid in the ER. When he was declined Dilaudid, he started asking for the Toradol and he was declined that as well, and the first thing he asked me when I came in the room this evening was could he stay the night. I told Donavon we do not reward people for this Electronically Signed By: RJ GOTTI MD 07/13/17 0811 PATIENT NAME: DONAVON CALLE OPERATIVE REPORT DATE OF : [birth year] PHYSICIAN: RJ GOTTI MD REPORT #: [id number] REPORT IS CONFIDENTIAL AND NOT TO BE RELEASED WITHOUT AUTHORIZATION [facility] [address] [place], [place] [address] Signed type of behavior and if the upper endoscopy was fine, he would be going back to the [facility]. He understands upper endoscopy very well. He knows there is risk including, but not limited to, gas bloating, crampy abdominal pain, bleeding, perforation requiring surgery, and missed diagnosis. He also understands the need for general anesthesia to protect his airway with an ET tube. He expressed understanding and wished to proceed. PROCEDURE NOTE: Donavon was taken into our endoscopy suite and placed in the supine semi-recumbent position under general endotracheal tube anesthesia. The adult gastroscope was then introduced and advanced easily down his esophagus out into the stomach. He had some food debris in the distal half of the stomach. We took the wire loop and we cut through it several times. It was quite soft, very pliable. I pushed over half of it through the pylorus out into the duodenum. His duodenum was widely patent and without any issues, including the pyloric channel. Back in the stomach, he had the same food debris up in the fundus and I pushed the scope through it several times and pushed it around and we evaluated it from multiple angles both above and below. To best of our knowledge, maybe potato peels with some soft potato, but we were not sure completely. The GE junction and his esophagus were completely unremarkable. After this, the gas was suctioned out and the gastroscope removed. Donavon was weaned from his anesthesia, extubated in the endoscopy suite and taken into recovery room in stable condition. RECOMMENDATIONS: Donavon obviously has difficulty with his schizophrenia. It should be considered that if he does this again, he might be taken to a hospital, where they actually have a psychiatrist and maybe he could have some input from a psychiatrist. I mentioned this to Donavon. He expressed understanding and agrees to the above plan. Rj Gotti MD ALB/MODL /[id number] cc: Bola Henley MD Electronically Signed By: RJ GOTTI MD 07/13/17 0811 PATIENT NAME: DONAVON CALLE OPERATIVE REPORT DATE OF : [birth year] PHYSICIAN: RJ GOTTI MD REPORT #: [id number] REPORT IS CONFIDENTIAL AND NOT TO BE RELEASED WITHOUT AUTHORIZATION [facility] [address] [place], [place] [address] Signed Rj Gotti MD Electronically Signed By: RJ GOTTI MD 07/13/17 0811 PATIENT NAME: DONAVON CALLE OPERATIVE REPORT DATE OF : [birth year] PHYSICIAN: RJ GOTTI MD REPORT #: [id number] REPORT IS CONFIDENTIAL AND NOT TO BE RELEASED WITHOUT AUTHORIZATION
== END 2017-07-10 19:10 | disposition home or self-care (01) ==
LOC: ED 08:54 → MS 08:56
PROVIDERS: ADMIT Colon & Rectal Surgery
PROC: 0DJ08ZZ Inspection of Upper Intestinal Tract, Via Natural or Artificial Opening Endoscopic (ICD-10-PCS; principal; 2017-07-10 17:15)
DX: Z03.89 Encounter for observation for other suspected diseases and conditions ruled out (principal); F20.9 Schizophrenia, unspecified; J45.909 Unspecified asthma, uncomplicated; Z91.5 Personal history of self-harm; Z88.8 Allergy status to other drugs, medicaments and biological substances; Z79.899 Other long term (current) drug therapy
CPT/HCPCS: 74177; 80053; 81001; 83690; 85025; 96374; 99285; G0378; J0330; J2405; J2704; J3010; J7030; J7120; Q9967